=== PATIENT | male | born 1955 | race Caucasian/White ===

== ENCOUNTER → 2017-10-12 | Outpatient (CLI) | payer MEDICARE ==
[2017-10-12 17:23] LABS: URINE AMPHETAMINES SCREEN NEGATIVE; URINE BARBITURATES SCREEN NEGATIVE; URINE BENZODIAZEPINES SCREEN NEGATIVE; URINE COCAINE SCREEN NEGATIVE; URINE MARIJUANA (THC) SCREEN NEGATIVE; URINE PHENCYCLIDINE SCREEN NEGATIVE
[2017-10-12 18:30] LABS: URINE METHADONE SCREEN UNCONFIRMED POSITIVE
--- NOTE | 2017-10-12 23:03 | EKG REPORT ---
SEVERITY:- BORDERLINE ECG - SINUS RHYTHM BORDERLINE LEFT AXIS DEVIATION BORDERLINE T WAVE ABNORMALITIES : Confirmed by: Rufino Cabello 12-Oct-2017 23:02:37
== END ==
LOC: OD 14:53
PROVIDERS: ATTEND Physician Assistant
DX: Z79.891 Long term (current) use of opiate analgesic (principal)
CPT/HCPCS: 93005; 80307; 93010; G0480; 80358

== ENCOUNTER → 2018-05-09 | Outpatient (CLI) | payer MEDICARE | LOC: OD 15:12 | PROVIDERS: ATTEND Physician Assistant | DX: Z79.891 Long term (current) use of opiate analgesic (principal); Z53.8 Procedure and treatment not carried out for other reasons ==

== ENCOUNTER → 2018-07-18 | Outpatient (CLI) | payer MEDICARE ==
[2018-07-18 11:17] LABS: ABSOLUTE EOSINOPHILS # (AUTO) 0.1 10^3/uL (0.0-0.6); ABSOLUTE LYMPHOCYTES (AUTO) 1.2 10^3/uL (0.5-4.7); ABSOLUTE MONOCYTES (AUTO) 0.2 10^3/uL (0.1-1.4); ABSOLUTE NEUT (AUTO) 4.2 10^3/uL (1.7-8.2); BASOPHILS % (AUTO) 0.4 % (0-2); EOSINOPHILS % (AUTO) 1.7 % (0-6); HEMATOCRIT 46.7 % (37.9-51.0); HEMOGLOBIN 15.8 g/dL (13.5-17.0); LYMPHOCYTES % (AUTO) 20.7 % (13-45); MEAN CORPUSCULAR HEMOGLOBIN 32.4 pg (27.0-33.4); MEAN CORPUSCULAR HGB CONC 33.8 g/dL (32.0-36.0); MEAN CORPUSCULAR VOLUME 96 fl (80-97); MONOCYTES % (AUTO) 4.2 % (3-13); PLATELET COUNT 153 10^3/uL (150-450); RED BLOOD COUNT 4.87 10^6/uL (4.35-5.55); RED CELL DISTRIBUTION WIDTH 14.3 % (11.5-14.0); TOTAL CELLS COUNTED % (AUTO) 100 %; WHITE BLOOD COUNT 5.7 10^3/uL (4.0-10.5)
[2018-07-18 11:45] LABS: ANION GAP 9 (5-19); BLOOD UREA NITROGEN 12 mg/dL (7-20); CALCIUM 9.4 mg/dL (8.4-10.2); CARBON DIOXIDE 30 mmol/L (22-30); CHLORIDE 100 mmol/L (98-107); GLUCOSE 89 mg/dL (75-110); POTASSIUM 4.2 mmol/L (3.6-5.0); SODIUM 138.8 mmol/L (137-145)
[2018-07-18 11:47] LABS: C-REACTIVE PROTEIN < 5.0 mg/L (<10.0)
[2018-07-18 12:05] LABS: ERYTHROCYTE SEDIMENTATION RATE 12 mm/hr (0-20)
== END ==
LOC: OD 10:23
PROVIDERS: ATTEND Orthopaedic Surgery
DX: M25.561 Pain in right knee (principal); M25.562 Pain in left knee
CPT/HCPCS: 36415; 80048; 85025; 85652; 86140

== ENCOUNTER → 2018-07-25 | Outpatient (CLI) | payer MEDICARE ==
--- NOTE | 2018-07-25 14:48 | RADIOLOGY REPORT (SQ) ---
EXAM DESCRIPTION: NM 3 PHASE BONE SCAN COMPLETED DATE/TIME: 07/25/2018 1:23 pm REASON FOR STUDY: PAIN IN RIGHT KNEE (M25.561), PAIN IN LEFT KNEE (M25.562) M25.561 PAIN IN RIGHT K NEE M25.562 PAIN IN LEFT KNEE COMPARISON: Outside plain films 07/18/2018. RADIONUCLIDE AND DOSE: 18.7 millicuries Tc99m HDP. The route of agent administration: Intravenous. ADDITIONAL DRUGS AND DOSES: None. TECHNIQUE: Following injection of the radiopharmaceutical, serial blood flow images acquired. Equil ibrium blood pool images then acquired. Routine delayed images at 3 hour acquired of the areas of cl inical concern with additional focused images as needed. AREA OF INTEREST: Knees. LIMITATIONS: None. FINDINGS: VASCULAR FLOW IMAGES: No asymmetry or focal areas of hyperemia. BLOOD POOL IMAGES: No asymmetry or focal areas of soft-tissue hyper-perfusion. BONES: Increased uptake left knee and adjacent to right knee prosthesis. Increased uptake L5 vertebr al body. KIDNEYS: Symmetric excretion without obstruction. OTHER: No other significant finding. IMPRESSION: 1. Degenerative change left knee. No evidence of loosening or infection right knee arthroplasty. 2. Increased uptake L5 vertebral body could be degenerative or compression fracture. COMMENT: Quality measure 147: Current bone scan is compared with any available plain radiographs, p rior bone scans, and CT/MRI. TECHNICAL DOCUMENTATION: JOB ID: [id number] [employer]- All Rights Reserved Reading location - IP/workstation name: [facility]
== END ==
LOC: RAD 09:19
PROVIDERS: ATTEND Orthopaedic Surgery
DX: M25.561 Pain in right knee (principal); M25.562 Pain in left knee; M17.12 Unilateral primary osteoarthritis, left knee
CPT/HCPCS: 78315; A9561; Q9969

== ENCOUNTER → 2018-07-27 | Outpatient (CLI) | payer MEDICARE ==
--- NOTE | 2018-07-27 13:23 | RADIOLOGY REPORT (SQ) ---
EXAM DESCRIPTION: MRI LUMBAR SPINE WITHOUT COMPLETED DATE/TIME: 07/27/2018 12:48 pm REASON FOR STUDY: RADICULOPATHY, LUMBAR REGION M54.16 RADICULOPATHY, LUMBAR REGION COMPARISON: Bone scan dated 07/25/2018. TECHNIQUE: Sagittal and Axial imaging includes T1, T2, STIR and gradient echo sequences. Coronal T2/ HASTE imaging. LIMITATIONS: None. FINDINGS: VISUALIZED UPPER ABDOMEN: Limited evaluation. Renal cysts. No acute or suspicious findi ngs suggested. SEGMENTATION: No transitional anatomy. The lowest well-developed disc space is labeled L5-S1. ALIGNMENT: Anatomic. VERTEBRAE: Central compression deformity of the superior endplate of the L5 vertebral body. Approxim ately 40% loss of height of the vertebral body. Remainder of the vertebrae are intact. BONE MARROW: Edema in the marrow of the L5 vertebral body, particularly adjacent to the superior endp late. Otherwise normal. No marrow replacement. DISC SIGNAL: Normal. No significant abnormal signal or loss of height. POSTERIOR ELEMENTS: Generally intact. No pars defect evident. HARDWARE: None in the spine. CORD AND CONUS: Normal in size and signal intensity. Conus at the appropriate level. There is clumpi ng of the distal nerve roots along the periphery of the thecal sac. SOFT TISSUES: No aortic aneurysm seen. No bulky retroperitoneal adenopathy or mass. No paraspinal mas s or fluid. L1-L2: No significant spinal stenosis or exit foraminal stenosis. L2-L3: No significant spinal stenosis or exit foraminal stenosis. L3-L4: No significant disc bulge. Moderate facet arthropathy. Left side laminectomy defect. No sig nificant spinal stenosis or exit foraminal stenosis. L4-L5: Mild diffuse posterior annular disc bulge. Severe facet arthropathy, right greater than left. Left side laminectomy defect. Mild spinal stenosis and exit foraminal stenosis. L5-S1: Mild diffuse posterior disc bulge. Severe facet arthropathy, right greater than left. Left s agustin laminectomy defect. No significant spinal stenosis. Mild exit foraminal stenosis. LOWER THORACIC: Incompletely imaged. No stenosis seen. SACRUM: Visualized upper sacrum intact. OTHER: No other significant findings. IMPRESSION: 1. CENTRAL COMPRESSION DEFORMITY OF THE SUPERIOR ENDPLATE OF THE L5 VERTEBRAL BODY WITH APPROXIMATELY 40% LOSS OF HEIGHT. ADJACENT MARROW EDEMA. FINDINGS CONSISTENT WITH RECENT COMPRESSION AND CORRESP OND WITH THE ACTIVITY ON RECENT BONE SCAN. 2. SURGICAL CHANGES AND DEGENERATIVE CHANGES DETAILED ABOVE. 3. PERIPHERAL CLUMPING OF THE DISTAL NERVE ROOTS ALONG THE PERIPHERY OF THE THECAL SAC, CONSISTENT WI TH ARACHNOIDITIS. TECHNICAL DOCUMENTATION: JOB ID: [id number] [employer]- All Rights Reserved Reading location - IP/workstation name: [email or web address]
== END ==
LOC: RAD 11:49
PROVIDERS: ATTEND Orthopaedic Surgery
DX: M54.16 Radiculopathy, lumbar region (principal)
CPT/HCPCS: 72148

== ENCOUNTER → 2018-07-28 | Outpatient (CLI) | payer MEDICARE ==
[2018-07-28 12:55] LABS: ABSOLUTE LYMPHOCYTES (AUTO) 1.1 10^3/uL (0.5-4.7); ABSOLUTE MONOCYTES (AUTO) 0.4 10^3/uL (0.1-1.4); ABSOLUTE NEUT (AUTO) 9.3 10^3/uL (1.7-8.2); BASOPHILS % (AUTO) 0.1 % (0-2); HEMATOCRIT 44.8 % (37.9-51.0); HEMOGLOBIN 15.5 g/dL (13.5-17.0); LYMPHOCYTES % (AUTO) 9.8 % (13-45); MEAN CORPUSCULAR HEMOGLOBIN 32.8 pg (27.0-33.4); MEAN CORPUSCULAR HGB CONC 34.7 g/dL (32.0-36.0); MEAN CORPUSCULAR VOLUME 95 fl (80-97); MONOCYTES % (AUTO) 3.7 % (3-13); PLATELET COUNT 182 10^3/uL (150-450); RED BLOOD COUNT 4.73 10^6/uL (4.35-5.55); RED CELL DISTRIBUTION WIDTH 14.3 % (11.5-14.0); SEGMENTED NEUTROPHILS % (AUTO) 86.4 % (42-78); TOTAL CELLS COUNTED % (AUTO) 100 %; WHITE BLOOD COUNT 10.8 10^3/uL (4.0-10.5)
[2018-07-28 13:03] LABS: INTERNATIONAL RATION (INR) 0.95; PROTHROMBIN TIME 13.2 SEC (11.4-15.4)
[2018-07-28 13:04] LABS: PARTIAL THROMBOPLASTIN TIME 31.1 SEC (23.5-35.8)
[2018-07-28 13:04] LABS: APPEARANCE,URINE CLEAR; BILIRUBIN,URINE NEGATIVE (NEGATIVE); COLOR,URINE YELLOW; GLUCOSE, URINE NEGATIVE (NEGATIVE); KETONES,URINE NEGATIVE (NEGATIVE); LEUKOCYTE ESTERASE,URINE NEGATIVE (NEGATIVE); NITRITE,URINE NEGATIVE (NEGATIVE); PROTEIN,URINE NEGATIVE (NEGATIVE); URINE SPECIFIC GRAVITY 1.009; UROBILINOGEN,URINE NEGATIVE mg/dL (<2.0)
== END ==
LOC: OD 11:22
PROVIDERS: ATTEND Physician Assistant
DX: Z01.812 Encounter for preprocedural laboratory examination (principal); M54.5 Low back pain; D68.9 Coagulation defect, unspecified
CPT/HCPCS: 36415; 81001; 85025; 85610; 85730

== ENCOUNTER → 2018-08-03 | Outpatient (CLI) | payer MEDICARE ==
--- NOTE | 2018-08-03 16:32 | RADIOLOGY REPORT (SQ) ---
EXAM DESCRIPTION: CHEST PA/LATERAL COMPLETED DATE/TIME: 08/03/2018 4:21 pm REASON FOR STUDY: CHRONIC PAIN SYNDROME COMPARISON: AP chest 08/30/2012 EXAM PARAMETERS: NUMBER OF VIEWS: two views TECHNIQUE: Digital Frontal and Lateral radiographic views of the chest acquired. RADIATION DOSE: NA LIMITATIONS: none FINDINGS: LUNGS AND PLEURA: No opacities, masses or pneumothorax. No pleural effusion. MEDIASTINUM AND HILAR STRUCTURES: No masses or contour abnormalities. Surgical clips at the GE junct ion HEART AND VASCULAR STRUCTURES: Heart normal size. No evidence for failure. BONES: No acute findings. HARDWARE: None in the chest. OTHER: No other significant finding. IMPRESSION: NO SIGNIFICANT RADIOGRAPHIC FINDING IN THE CHEST. TECHNICAL DOCUMENTATION: JOB ID: [id number] [employer]- All Rights Reserved Reading location - IP/workstation name: [facility]
[2018-08-03 16:53] LABS: ABSOLUTE EOSINOPHILS # (AUTO) 0.1 10^3/uL (0.0-0.6); ABSOLUTE LYMPHOCYTES (AUTO) 1.5 10^3/uL (0.5-4.7); ABSOLUTE MONOCYTES (AUTO) 0.2 10^3/uL (0.1-1.4); ABSOLUTE NEUT (AUTO) 3.8 10^3/uL (1.7-8.2); BASOPHILS % (AUTO) 0.7 % (0-2); EOSINOPHILS % (AUTO) 2.5 % (0-6); HEMATOCRIT 45.6 % (37.9-51.0); HEMOGLOBIN 15.7 g/dL (13.5-17.0); LYMPHOCYTES % (AUTO) 26.8 % (13-45); MEAN CORPUSCULAR HEMOGLOBIN 32.3 pg (27.0-33.4); MEAN CORPUSCULAR HGB CONC 34.3 g/dL (32.0-36.0); MEAN CORPUSCULAR VOLUME 94 fl (80-97); MONOCYTES % (AUTO) 4.3 % (3-13); PLATELET COUNT 177 10^3/uL (150-450); RED BLOOD COUNT 4.85 10^6/uL (4.35-5.55); SEGMENTED NEUTROPHILS % (AUTO) 65.7 % (42-78); TOTAL CELLS COUNTED % (AUTO) 100 %; WHITE BLOOD COUNT 5.7 10^3/uL (4.0-10.5)
[2018-08-03 16:55] LABS: INTERNATIONAL RATION (INR) 0.93; PROTHROMBIN TIME 12.9 SEC (11.4-15.4)
[2018-08-03 16:56] LABS: PARTIAL THROMBOPLASTIN TIME 32.6 SEC (23.5-35.8)
[2018-08-03 17:01] LABS: APPEARANCE,URINE CLEAR; BILIRUBIN,URINE NEGATIVE (NEGATIVE); COLOR,URINE YELLOW; GLUCOSE, URINE NEGATIVE (NEGATIVE); KETONES,URINE NEGATIVE (NEGATIVE); LEUKOCYTE ESTERASE,URINE NEGATIVE (NEGATIVE); NITRITE,URINE NEGATIVE (NEGATIVE); PROTEIN,URINE NEGATIVE (NEGATIVE); URINE SPECIFIC GRAVITY 1.016
== END ==
LOC: OD 15:40
PROVIDERS: ATTEND Pain Medicine Interventional Pain Medicine
DX: D68.9 Coagulation defect, unspecified (principal); G89.4 Chronic pain syndrome; M25.561 Pain in right knee
CPT/HCPCS: 36415; 71046; 81001; 85025; 85610; 85730

== ENCOUNTER 2018-08-04 05:30 | Day surgery (SDC) | payer MEDICARE ==
[2018-08-04] MEDS ORDERED: CEFAZOLIN 1 GM/D5W RTU 1 GM/50 ML RTUPB IV ONE (06:31)
[2018-08-04] MEDS ORDERED: FENTANYL CITRATE INJ/PF 100 MCG/2 ML AMPUL ONE (06:46)
[2018-08-04] MEDS ORDERED: PROPOFOL INJ 200 MG/20 ML VIAL IV ONE (06:47)
[2018-08-04] MEDS ORDERED: LIDOCAINE 2% INJ-PF (20 MG/ML) 10 ML AMPUL ONE (06:47)
[2018-08-04] MEDS ORDERED: MIDAZOLAM 2 MG/2 ML INJ ONE (06:47)
[2018-08-04] MEDS ORDERED: ACETAMINOPHEN 1,000 MG/100 ML RTUPB IV ONE (06:47)
[2018-08-04] MEDS ORDERED: KETOROLAC TROMETHAMINE 60 MG/2 ML SDV ONE (07:10)
[2018-08-04] MEDS ORDERED: LIDOCAINE 1% INJ-PF (10 MG/ML) 30 ML SDV ONE (07:21)
[2018-08-04] MEDS ORDERED: SODIUM BICARBONATE 8.4% INJ 50 MEQ/50 ML DISP.SYRIN ONE (07:21)
[2018-08-04] MEDS ORDERED: DIPHENHYDRAMINE HCL 50 MG/ML VIAL IV PRN (08:09)
[2018-08-04] MEDS ORDERED: PROMETHAZINE HCL INJ 25 MG/1 ML VIAL IV PRN (08:09)
[2018-08-04] MEDS ORDERED: OXYCODONE-ACETAMINOPHEN 5-325 MG TABLET PO PRN ×3 (08:09→09:57)
[2018-08-04] MEDS ORDERED: MEPERIDINE HCL/PF INJ 25 MG/1 ML DISP.SYRIN IV PRN (08:09)
[2018-08-04] MEDS ORDERED: FENTANYL CITRATE INJ/PF 100 MCG/2 ML AMPUL IV PRN ×3 (08:09)
[2018-08-04] MEDS ORDERED: MORPHINE SULFATE 10 MG/ML INJ IV PRN (08:09)
[2018-08-04] MEDS ORDERED: CEFAZOLIN INJ 1 GM VIAL ONE (08:48)
--- NOTE | 2018-08-04 09:12 | OPERATIVE REPORT E ---
Operative Report NAME: LIBRA MABRY : 1955 AGE: 63Y DATE OF SURGERY: 08/04/2018 ROOM: PREOPERATIVE DIAGNOSIS: L5 lumbar compression fracture with intractable pain. POSTOPERATIVE DIAGNOSIS: L5 lumbar compression fracture with intractable pain. OPERATIVE PROCEDURE: L5 balloon kyphoplasty under fluoroscopic guidance with bilateral peripedicular approach. SURGEON: ROBYN HOFFMAN M.D. ANESTHESIA: MAC. BLOOD LOSS: 5 mL. INDICATIONS: Intractable pain. COMPLICATIONS: None. SPECIMENS REMOVED: None. PROCEDURE: After obtaining informed consent advising the patient of the risks and benefits, including serious neurological, including bleeding, infection, allergic reaction, paralysis, nerve injury, failure to treat pain, aggravation of pain, and , he was taken to the operating room and placed comfortably in the prone position. Comfort was assessed visually and verbally. He was prepped over the lumbosacral gluteal region with chlorhexidine with appropriate drying time, then draped. Using fluoroscopy the spine was evaluated. Biplanar technique was utilized. The L5 fracture was readily identified. Beginning with the right peripedicular approach a suitable skin entrance site was selected. The skin was anesthetized with 1% lidocaine with bicarb, as was the subcutaneous and periosteal tissues. When suitable local anesthesia was established a small incision was made in the skin to allow passage of the trocar. The trocar was then advanced into the peripedicular position into the vertebral body with multiple views taken to ensure passage into the vertebral body prior to passing the medial cortical line of the pedicle. The drill was then placed followed by removal and placement of the balloon. It should be noted that the balloon popped, probably due to a bone shard, and it was removed. A second balloon was placed and inflated. Attention was directed towards the left pedicle. The procedure was repeated on the left in the same similar fashion. The balloon was removed from the right and placed into the left and inflated without difficulty. Filling of the left side was then initiated. A total of 4 mL of cement was placed into the left region without difficulty or extravasation. The filling then proceeded through the right side with a total of 2.2 mL of cement. This cement was allowed to harden prior to removing the trocar. The trocars were then removed and then the region was cleansed. Sterile dressings were placed. He was taken to the PACU for postoperative care and monitoring. DICTATING PHYSICIAN: ROBYN HOFFMAN M.D. [id number] PHY#: [id number] ID: [id number] JOB#: [id number] ACCT: [id number] cc:ROBYN HOFFMAN M.D. >
[2018-08-04] MEDS ORDERED: OXYCODONE-ACETAMINOPHEN 5-325 MG TABLET ONE (09:42)
--- NOTE | 2018-08-04 10:58 | RADIOLOGY REPORT (SQ) ---
EXAM DESCRIPTION: NO CHG FLUORO COMPLETE DATE/TIME: 08/04/2018 10:39 am REASON FOR STUDY: KYPHOPLASTY ASST WITH FLUORO IN OR FINDINGS: Please see combined report for performance of procedure and radiologic supervision and int erpretation. IMPRESSION: Please see combined report for performance of procedure and radiologic supervision and i nterpretation. Reading location - IP/workstation name: [email or web address]
--- NOTE | 2018-08-04 10:58 | RADIOLOGY REPORT (SQ) ---
EXAM DESCRIPTION: L SPINE 2 VIEWS COMPLETED DATE/TIME: 08/04/2018 10:39 am REASON FOR STUDY: KYPHOPLASTY ASST WITH FLUORO IN OR COMPARISON: None. FLUOROSCOPY TIME: 4.4 minutes Spot images saved to PACS. TECHNIQUE: Intra-operative images acquired during surgical procedure to evaluate progress. NUMBER OF IMAGES: 30 LIMITATIONS: None. FINDINGS: Fluoroscopy was provided for intraoperative procedure. Please refer to the operative repo rt for further discussion. IMPRESSION: IMAGE(S) OBTAINED DURING PROCEDURE. COMMENT: Quality ID [id number]: Final reports for procedures using fluoroscopy that document radiation exp osure indices, or exposure time and number of fluorographic images (if radiation exposure indices are not available) Please consult full operative report of the attending physician for description of the procedure. TECHNICAL DOCUMENTATION: JOB ID: [id number] [employer]- All Rights Reserved Reading location - IP/workstation name: [email or web address]
[2018-08-04 11:39] VITALS: BP 134/73
== END 2018-08-04 10:40 | disposition home or self-care (01) ==
LOC: OROUT 05:30
PROVIDERS: ATTEND Pain Medicine Interventional Pain Medicine
DX: S32.020A Wedge compression fracture of second lumbar vertebra, initial encounter for closed fracture (principal); X58.XXXA Exposure to other specified factors, initial encounter; M54.5 Low back pain; E78.5 Hyperlipidemia, unspecified; M10.9 Gout, unspecified; I10 Essential (primary) hypertension; M19.90 Unspecified osteoarthritis, unspecified site; Z79.899 Other long term (current) drug therapy; Z01.812 Encounter for preprocedural laboratory examination; Z79.891 Long term (current) use of opiate analgesic; Z87.11 Personal history of peptic ulcer disease
CPT/HCPCS: 72100; 22514; C1713; Q9966; J2250; J0690 ×2; J1885; J3010; J3490 ×3; A9270; J2704; J0131; 1936

== ENCOUNTER 2018-11-10 14:07 | Emergency (ER) | payer OTHER, MEDICARE ==
[2018-11-10] MEDS ORDERED: HYDROMORPHONE HCL INJ/PF 2 MG/ML AMPULE IV ONE ×3 (15:02→20:01)
[2018-11-10] MEDS ORDERED: ONDANSETRON HCL INJ/PF 4 MG/2 ML SDV IV ONE (15:02)
--- NOTE | 2018-11-10 15:04 | ER Document Report ---
ED Medical Screen (RME) - General Chief Complaint: Back Pain Stated Complaint: BACK PAIN, LEG AND FOOT NUMBNESS Time Seen by Provider: 11/10/18 14:54 Primary Care Provider: SHAHEEN MARIA [Primary Care Provider] - Follow up as needed Mode of Arrival: Ambulatory Information source: Patient TRAVEL OUTSIDE OF THE [place] IN LAST 30 DAYS: No - HPI Patient complains to provider of: BACK PAIN Notes: 11/10/18 15:03 Patient is here with complaints of low back pain. The patient has a history of chronic back pain is on methadone and oxycodone. He has a pain contract. States for the last few days he has had some significantly increased pain in the low back with numbness down the right leg. Having difficulty ambulating due to this. No bowel or bladder dysfunction. No recent fall or injury. He had a prior laminectomy, he had a kyphoplasty done in July. He denies fevers. No abdominal pain. Exam Patient appears very uncomfortable. Difficulty ambulating due to his right leg. Tenderness to palpation to the lumbar spine in the right lumbar paraspinal muscle area. Weakness to the right lower extremity. Inability to dorsiflex the right great toe. Decreased sensation of the right leg. No saddle anesthesia. Plan CBC, CMP, sed rate, CRP. MRI of the lumbar spine. Dilaudid and Zofran. An initial examination was made on the patient as part of the triage process, and it was determined a more comprehensive evaluation was necessary. Initial labs were ordered and patient was transferred to another provider in the ED who assumed care and finished evaluation and plan. - Related Data Allergies/Adverse Reactions: No Known Allergies Allergy (Verified 08/04/18 06:21) Past Medical History - Social History Chew tobacco use (# tins/day): No Frequency of alcohol use: None Drug Abuse: None - Past Medical History Cardiac Medical History: Reports: Hx Hypertension - NO MEDS Denies: Hx Coronary Artery Disease, Hx Heart Attack Pulmonary Medical History: Denies: Hx Asthma, Hx Bronchitis, Hx COPD, Hx Pneumonia Neurological Medical History: Denies: Hx Cerebrovascular Accident, Hx Seizures Renal/ Medical History: Denies: Hx Peritoneal Dialysis GI Medical History: Reports: Hx Ulcer Musculoskeltal Medical History: Reports Hx Arthritis Past Surgical History: Reports: Hx Abdominal Surgery - ulcers, Hx Appendectomy, Hx Orthopedic Surgery - LUMBAR LAMINECTOMY, KNEE SURGERY. BILAT CARPAL TUNNEL AND CUBITAL TUNNEL SURGERY., Hx Tonsillectomy Physical Exam - Vital signs Vitals: Temp Pulse Resp BP Pulse Ox 97.6 F 76 16 117/67 98 11/10/18 14:15 11/10/18 14:15 11/10/18 14:15 11/10/18 14:15 11/10/18 14:15 Course - Vital Signs Vital signs: Temp Pulse Resp BP Pulse Ox 97.6 F 76 16 117/67 98 11/10/18 14:15 11/10/18 14:15 11/10/18 14:15 11/10/18 14:15 11/10/18 14:15 Doctor's Discharge - Discharge Referrals: SHAHEEN MARIA [Primary Care Provider] - Follow up as needed
[2018-11-10] MEDS ORDERED: DIAZEPAM 5 MG TABLET PO ONE (17:38)
[2018-11-10 18:20] LABS: ABSOLUTE BASOPHILS # (AUTO) 0.1 10^3/uL (0.0-0.2); ABSOLUTE EOSINOPHILS # (AUTO) 0.1 10^3/uL (0.0-0.6); ABSOLUTE LYMPHOCYTES (AUTO) 1.9 10^3/uL (0.5-4.7); ABSOLUTE MONOCYTES (AUTO) 0.3 10^3/uL (0.1-1.4); ABSOLUTE NEUT (AUTO) 4.6 10^3/uL (1.7-8.2); BASOPHILS % (AUTO) 0.8 % (0-2); HEMATOCRIT 47.9 % (37.9-51.0); HEMOGLOBIN 16.1 g/dL (13.5-17.0); LYMPHOCYTES % (AUTO) 27.2 % (13-45); MEAN CORPUSCULAR HEMOGLOBIN 31.6 pg (27.0-33.4); MEAN CORPUSCULAR HGB CONC 33.7 g/dL (32.0-36.0); MEAN CORPUSCULAR VOLUME 94 fl (80-97); PLATELET COUNT 166 10^3/uL (150-450); RED BLOOD COUNT 5.11 10^6/uL (4.35-5.55); RED CELL DISTRIBUTION WIDTH 14.3 % (11.5-14.0); TOTAL CELLS COUNTED % (AUTO) 100 %
[2018-11-10 18:56] LABS: ERYTHROCYTE SEDIMENTATION RATE 15 mm/hr (0-20)
--- NOTE | 2018-11-10 19:32 | ER Document Report ---
ED General - General Chief Complaint: Back Pain Stated Complaint: BACK PAIN, LEG AND FOOT NUMBNESS Time Seen by Provider: 11/10/18 14:54 Primary Care Provider: SHAHEEN MARIA [Primary Care Provider] - Follow up as needed Mode of Arrival: Ambulatory Information source: Patient TRAVEL OUTSIDE OF THE [place] IN LAST 30 DAYS: No - HPI Patient complains to provider of: Right low back pain, right lower extremity paresthesias and weakness Onset: Other - 2 days ago Onset/Duration: Sudden Quality of pain: Sharp Severity: Severe Pain Level: 5 Associated symptoms: Weakness - Right lower extremity. denies: Hurts to breath, Leg swelling, Shortness of breath Exacerbated by: Movement, Walking Relieved by: Denies Similar symptoms previously: No Recently seen / treated by doctor: Yes Notes: Patient is a 63-year-old male coming in today at the request of the [facility] for right lower back pain which is worse than his baseline as well as paresthesias and weakness in the right leg. Weakness with plantar and dorsiflexion of the right foot. He denies bladder and bowel dysfunction. Denies saddle anesthesia. - Related Data Allergies/Adverse Reactions: No Known Allergies Allergy (Verified 08/04/18 06:21) Past Medical History - General Information source: Patient - Social History Smoking Status: Current Every Day Smoker Chew tobacco use (# tins/day): No Frequency of alcohol use: None Drug Abuse: None Family History: Reviewed & Not Pertinent Patient has suicidal ideation: No Patient has homicidal ideation: No - Past Medical History Cardiac Medical History: Reports: Hx Hypertension - NO MEDS Denies: Hx Coronary Artery Disease, Hx Heart Attack Pulmonary Medical History: Denies: Hx Asthma, Hx Bronchitis, Hx COPD, Hx Pneumonia Neurological Medical History: Denies: Hx Cerebrovascular Accident, Hx Seizures Renal/ Medical History: Denies: Hx Peritoneal Dialysis GI Medical History: Reports: Hx Ulcer Musculoskeletal Medical History: Reports Hx Arthritis Past Surgical History: Reports: Hx Abdominal Surgery - ulcers, Hx Appendectomy, Hx Orthopedic Surgery - LUMBAR LAMINECTOMY, KNEE SURGERY. BILAT CARPAL TUNNEL AND CUBITAL TUNNEL SURGERY., Hx Tonsillectomy Review of Systems - Review of Systems Notes: Constitutional: No fevers. No chills. EENT: No eye redness. No eye pain. No ear pain. No sore throat. Cardiovascular: No chest pain. No palpitations. Respiratory: No cough. No shortness of breath. No respiratory distress. Gastrointestinal: No abdominal pain. No nausea, vomiting, or diarrhea. Genitourinary: Atraumatic. No lesions. No pain. No discharge. Musculoskeletal: Weakness right lower extremity, pain right low back Skin: No rash or lesions. Lymphatic: No swollen lymph nodes. Neurologic: No headache. No syncope. Psychiatric: No suicidal or homicidal ideation. Physical Exam - Vital signs Vitals: Temp Pulse Resp BP Pulse Ox 97.6 F 76 16 117/67 98 11/10/18 14:15 11/10/18 14:15 11/10/18 14:15 11/10/18 14:15 11/10/18 14:15 - Notes Notes: General: Well-developed, well-nourished. In no acute distress. Non-toxic appearing. Cardiac: Well-perfused. Regular rate and rhythm. No murmurs, rubs, or gallops. Pulmonary: No respiratory distress. No cyanosis. Bilateral lung fiels are clear to auscultation. Abdominal: Non-distended. Non-rigid. Bowels sounds are present in all four quadrants. No guarding or rebound. HEENT: Head is atraumatic. Conjunctivae not reddened. No tearing. PERRL. EOMI. Orbits atraumatic. No periorbital swelling or erythema. Oropharynx is without erythema, swelling, or exudates. Neck: Supple. No adenopathy. No meningismus. Dermatologic: Warm with good turgor. No rash. Atraumatic. Chest: Atraumatic. No chest wall tenderness to palpation. Musculoskeletal: Moves all extremities well. No range of motion deficits. Right- sided paralumbar tenderness to palpation. No midline tenderness or step-off. Weakness with plantar and dorsiflexion as compared to left leg. Pulses 2+ dorsalis pedis and posterior tibial bilateral lower extremities. Genitourinary: Examination deferred Neurologic: No gross neurologic deficits. Psychiatric: Normal mood. Course - Re-evaluation Re-evalutation: 11/10/18 21:42 Patient having some slight hyponatremia and some renal insufficiency. I encouraged him to drink more fluids and to eat some salty food. Prednisone is on board. Labs do not show any sign of infection. No signs of cauda equina on the MRI. I will start him on a steroid pack and have him [facility]. - Vital Signs Vital signs: Temp Pulse Resp BP Pulse Ox 97.6 F 76 16 117/67 98 11/10/18 14:15 11/10/18 14:15 11/10/18 14:15 11/10/18 14:15 11/10/18 14:15 - Laboratory Result Diagrams: 11/10/18 18:10 11/10/18 20:19 Laboratory results interpreted by me: 11/10/18 11/10/18 18:10 20:19 RDW 14.3 H Sodium 134.5 L Chloride 94 L Carbon Dioxide 31 H BUN 30 H Creatinine 1.33 H Est GFR (Non-Af Amer) 54 L Discharge - Discharge Clinical Impression: Renal insufficiency, Paresthesias Low back pain Qualifiers: Chronicity: chronic Back pain laterality: right Sciatica presence: with sciatica Sciatica laterality: sciatica of right side Qualified Code(s): M54.41 - Lumbago with sciatica, right side; G89.29 - Other chronic pain Condition: Good Disposition: HOME, SELF-CARE Instructions: Ice Packs ([facility]), Low Back Pain ([facility]) Additional Instructions: Kidney functions are elevated somewhat. Drink plenty of water and YOU can actually eat a little bit of salty food to help raise your sodium and chloride a little bit. Start the steroid pack tomorrow. If you have intractable pain over the weekend YOU may return to the emergency department. Prescriptions: Methylprednisolone [Medrol Dosepack (4 mg/Tab) 21 Tab/Dosepak] 21 tab PO DAILY #1 dspk Referrals: SHAHEEN MARIA [Primary Care Provider] - 11/13/18
--- NOTE | 2018-11-10 20:15 | RADIOLOGY REPORT (SQ) ---
EXAM DESCRIPTION: MR LUMBAR SPINE WITHOUT THEN WITH IV CONTRAST COMPLETED DATE/TME: 11/10/2018 14:59 CLINICAL HISTORY: 63 years Male LOW BACK PAIN, RIGHT LEG WEAKNESS COMPARISON: 07/27/2018. TECHNIQUE: Multiplanar and multisequence imaging obtained through the lumbar spine with and without IV contrast. FINDINGS: Normal alignment and lordosis. Note is again made of moderate compression at the level of L5 which is present on the previous examination. There have been changes of kyphoplasty when compared to the previous study. There appears to be some herniation of the disc material along the fracture consistent with an acute or subacute Schmorl's node along the superior endplate. No new area of fracture is noted. Conus appears unremarkable and ends at the level of T12-L1. No significant central canal or neural foraminal stenosis at L2-L3 or L3-L4. Facet arthropathy is present. There is some clumping of the nerve roots below the level of L2 which may reflect arachnoiditis. Mild disc bulging and facet arthropathy at L3-L4 without significant central canal stenosis. There is moderate neural foraminal narrowing. L4-5: Generalized bulging of the disc with mild narrowing of the central canal and moderate to severe neural foraminal stenosis. L5-S1: Facet arthropathy and disc bulging with facet cyst on the right posteriorly. Hemilaminectomy changes on the left. There is severe neural foraminal stenosis left greater than right. No additional evidence to suggest abnormal enhancement. IMPRESSION: Compression at L5 which was present on the previous study and has been treated with subsequent vertebroplasty. 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
[2018-11-10] MEDS ORDERED: PREDNISONE 20 MG TABLET PO ONE (20:26)
[2018-11-10 21:22] LABS: ALANINE AMINOTRANSFERASE 33 U/L (21-72); ALBUMIN 4.2 g/dL (3.5-5.0); ALKALINE PHOSPHATASE 94 U/L (38-126); ANION GAP 10 (5-19); ASPARTATE AMINO TRANSFERASE 33 U/L (17-59); BILIRUBIN,DIRECT 0.3 mg/dL (0.0-0.4); BILIRUBIN,TOTAL 0.6 mg/dL (0.2-1.3); BLOOD UREA NITROGEN 30 mg/dL (7-20); CALCIUM 9.6 mg/dL (8.4-10.2); CARBON DIOXIDE 31 mmol/L (22-30); CHLORIDE 94 mmol/L (98-107); GLUCOSE 90 mg/dL (75-110); POTASSIUM 4.7 mmol/L (3.6-5.0); SODIUM 134.5 mmol/L (137-145); TOTAL PROTEIN 7.4 g/dL (6.3-8.2)
[2018-11-10 21:23] LABS: C-REACTIVE PROTEIN < 5.0 mg/L (<10.0)
[2018-11-10 22:30] VITALS: BP 104/72
== END 2018-11-10 22:31 | disposition home or self-care (01) ==
LOC: ER 14:07
DX: N28.9 Disorder of kidney and ureter, unspecified (principal); R20.2 Paresthesia of skin; G89.29 Other chronic pain; M54.41 Lumbago with sciatica, right side; I10 Essential (primary) hypertension; F17.200 Nicotine dependence, unspecified, uncomplicated
CPT/HCPCS: 96376; 99284; 96374; 96375; 36415; 85025; 85652; 86140; 80053; 72158; A9576; J1170; J7512; J2405

== ENCOUNTER → 2019-01-30 | Outpatient (CLI) | payer OTHER, MEDICARE | LOC: OD 10:19 | PROVIDERS: ATTEND Physician Assistant | DX: Z51.81 Encounter for therapeutic drug level monitoring (principal); Z79.891 Long term (current) use of opiate analgesic | CPT/HCPCS: 36415; 80358 ==

== ENCOUNTER 2019-02-21 16:59 | Emergency (ER) | payer OTHER, MEDICARE ==
[2019-02-21] MEDS ORDERED: KETOROLAC TROMETHAMINE 60 MG/2 ML SDV IM ONE (17:46)
[2019-02-21] MEDS ORDERED: DEXAMETHASONE SOD PHOS INJ 10 MG/1 ML VIAL IM ONE (17:46)
[2019-02-21] MEDS ORDERED: LIDOCAINE 5% (700 MG) TRANSDERMAL ADH..PATCH TP ONE (17:47)
--- NOTE | 2019-02-21 17:57 | ER Document Report ---
ED Neck/Back Problem - General Chief Complaint: Back Pain Stated Complaint: FALL/BACK PAIN Time Seen by Provider: 02/21/19 17:31 Primary Care Provider: BRENDA FINLEY PA-C [PHYSICIAN SPOT CHECKER] - Follow up in 3-5 days Mode of Arrival: Wheelchair Information source: Patient Notes: 63-year-old male presented to ED for complaint of low back pain radiating down the right leg. He states he fell on . He has a long history of chronic back pain with sciatica. He has had an MRI he does have a appointment for back injections on March 22. He is going to pain management and is on methadone and oxycodone for his chronic back pain. He states he has increase in pain since . He states he has a decrease in sensation but he is able to feel anywhere I touch him. He has no saddle anesthesia. He has no loss of control of bowel bladder. He has good rectal tone. He is able to stand and transfer to the bed but he states it does hurt. He states he went to the [facility] and they sent him to the emergency room to get examined. TRAVEL OUTSIDE OF THE [place] IN LAST 30 DAYS: No - HPI Patient complains to provider of: Lower back Onset: Other - Where: Public place - Doctor's office Onset: Chronic Timing: Worse Quality of pain: Sharp, Throbbing Severity: Severe Pain Level: 5 Context: Fall/near-fall - Recent injury: Yes Associated symptoms: Like prior neck/back pain, Radiation to leg, Lower back pain Exacerbated by: Movement of trunk, Sitting position Relieved by: Nothing Similar symptoms previously: Yes Recently seen / treated by doctor: Yes - What - Related Data Allergies/Adverse Reactions: No Known Allergies Allergy (Verified 02/21/19 17:02) Past Medical History - General Information source: Patient - Social History Smoking Status: Current Every Day Smoker Cigarette use (# per day): Yes - ppd Frequency of alcohol use: None Drug Abuse: None Lives with: Family Family History: Reviewed & Not Pertinent Patient has suicidal ideation: No Patient has homicidal ideation: No - Past Medical History Cardiac Medical History: Reports: Hx Hypercholesterolemia, Hx Hypertension - NO MEDS Pulmonary Medical History: Reports: None EENT Medical History: Reports: None Neurological Medical History: Reports: None Endocrine Medical History: Reports: None Renal/ Medical History: Reports: None Malignancy Medical History: Reports Hx Skin Cancer GI Medical History: Reports: Hx Ulcer, Hx Endoscopy Musculoskeletal Medical History: Reports Hx Arthritis, Reports Hx Musculoskeletal Deformity, Reports Hx Musculoskeletal Trauma Skin Medical History: Reports None Psychiatric Medical History: Reports: None Traumatic Medical History: Reports: Hx Fractures - back, Hx Spine Fracture Infectious Medical History: Reports: None Past Surgical History: Reports: Hx Abdominal Surgery - ulcers, Hx Appendectomy, Hx Orthopedic Surgery - LUMBAR LAMINECTOMY, KNEE SURGERY. BILAT CARPAL TUNNEL AND CUBITAL TUNNEL SURGERY., Hx Tonsillectomy, Other - Is able to skin cancer - Immunizations Immunizations up to date: Yes Review of Systems - Review of Systems Constitutional: No symptoms reported EENT: No symptoms reported Cardiovascular: No symptoms reported Respiratory: No symptoms reported Gastrointestinal: No symptoms reported Genitourinary: No symptoms reported Male Genitourinary: No symptoms reported Musculoskeletal: No symptoms reported Skin: No symptoms reported Hematologic/Lymphatic: No symptoms reported Neurological/Psychological: No symptoms reported -: Yes All other systems reviewed and negative Physical Exam - Vital signs Vitals: Temp Pulse Resp BP Pulse Ox 98.0 F 71 18 131/75 H 97 02/21/19 17:05 02/21/19 17:05 02/21/19 17:05 02/21/19 17:05 02/21/19 17:05 Interpretation: Normal - General General appearance: Appears well, Alert - HEENT Head: Normocephalic, Atraumatic Eyes: Normal Pupils: PERRL - Respiratory Respiratory status: No respiratory distress Chest status: Nontender Breath sounds: Normal Chest palpation: Normal - Cardiovascular Rhythm: Regular Heart sounds: Normal auscultation Murmur: No - Abdominal Inspection: Normal Distension: No distension Bowel sounds: Normal Tenderness: Nontender Organomegaly: No organomegaly - Back Back: Normal, Tender, Vertebra tenderness Notes: No signs or symptoms of cauda equina, good rectal tone full sensation to the saddle area full sensation to both legs does have pain down the right leg right SI joint and vertebral area. - Extremities General upper extremity: Normal inspection, Nontender, Normal color, Normal ROM, Normal temperature General lower extremity: Normal inspection, Nontender, Normal color, Normal ROM, Normal temperature, Normal weight bearing. No: Janak's sign - Neurological Neuro grossly intact: Yes Cognition: Normal Orientation: AAOx4 [place]onas Coma Scale Eye Opening: Spontaneous [place] Coma Scale Verbal: Oriented [place] Coma Scale Motor: Obeys Commands [place] Coma Scale Total: 15 Speech: Normal Motor strength normal: LUE, RUE, LLE, RLE Sensory: Normal - Psychological Associated symptoms: Normal affect, Normal mood - Skin Skin Temperature: Warm Skin Moisture: Dry Skin Color: Normal Course - Re-evaluation Re-evalutation: 02/22/19 01:19 After performing a Medical Screening Examination, I estimate there is LOW risk for EXPANDING OR RUPTURED ABDOMINAL AORTIC ANEURYSM, CAUDA EQUINA SYNDROME, EPIDURAL MASS LESION, or HERNIATED DISK CAUSING SEVERE SPINAL STENOSIS, thus I consider the discharge disposition reasonable. I have reevaluated this patient multiple times and no significant life threatening changes are noted. The patient and I have discussed the diagnosis and risks, and we agree with discharging home and close follow-up. We also discussed returning to the Emergency Department immediately if new or worsening symptoms occur with the understanding that symptoms and presentations can change. We have discussed the symptoms which are most concerning (e.g., saddle anesthesia, urinary or bowel incontinence or retention, changing or worsening pain) that necessitate immediate return. - Vital Signs Vital signs: Temp Pulse Resp BP Pulse Ox 98.0 F 80 18 136/78 H 98 02/21/19 19:31 02/21/19 19:31 02/21/19 19:31 02/21/19 19:31 02/21/19 19:31 - Diagnostic Test Radiology reviewed: Image reviewed, Reports reviewed Discharge - Discharge Clinical Impression: Low back pain with right-sided sciatica Qualifiers: Chronicity: chronic Back pain laterality: bilateral Qualified Code(s): M54.41 - Lumbago with sciatica, right side Condition: Stable Disposition: HOME, SELF-CARE Additional Instructions: Chronic Back Pain Chronic back pain (pain persisting longer than three months) is a common problem. A medical evaluation can look for herniated disc, arthritis, osteoporosis, tumors, and infections. But at least half the time, there's no obvious treatable cause. Anxiety and depression tend to worsen back pain. Ibuprofen or other anti-inflammatory medicine can help. A heating pad, used for 15-20 minutes at a time, can ease pain. For this type of back pain, narcotic medicines should be avoided. Muscle relaxers are rarely helpful unless you're having spasms. Activity is important. Find an aerobic exercise program that your back can tolerate. Too much rest makes back pain worse. Specific back exercises are usually prescribed to strengthen the back and abdominal muscles. Often, a physical therapist can help. Avoid heavy lifting, working while bent over, or standing with both knees straight. Most back pain patients do better with a firm mattress. If new symptoms of a "herniated disc" (radiation of pain, numbness, or tingling down the back of the leg or weakness in the leg) occur, you should be re-examined. Chronic Pain Control Stress, inactivity, and depression make pain more severe regardless of the cause of the pain. Stress and poor physical condition can cause pain such as headaches and backache. Relaxation: Rest in a quiet place with your eyes closed for 20 minutes twice daily. Concentrate on a pleasant image, or simply "feel" your breathing. Clear your mind. Stress management: Deal with your "stressors." Either take action, or eliminate the stressor from your life. Don't let things hang over you. Accept those things you can't change. Nutrition: Eat small, balanced meals -- don't skip, don't overeat. Meals should be high-carbohydrate, low-sugar, low-fat. Exercise: Exercise helps painful conditions and eases stress. Get 30 minutes of moderate exercise, five days a week. Do an activity that does not flare your pain. Precautions: Pain which continues to disrupt daily activities, or which changes in nature, requires a medical evaluation. Pain Clinic referral is available. We do not manage chronic pain in the Emergency Department. We will try to appropriately help you through an acute flare of your chronic painful condition, but for on-going chronic pain that does not improve, you will need to see your private doctor or supervisor paint. We do not provide repeated medication management of chronic painful conditions. If you wish, we can provide the name of local pain management physicians. ICE PACKS: Apply ice packs frequently against the painful area. Many different schedules are recommended, such as "20 minutes on, 20 minutes off" or "one hour ice, two hours rest." If you need to work, you may need to go longer between ice treatments. You should plan to have the area ice packed AT LEAST one fourth of the time. The ice should be applied over the wrap, tape, or splint, or over a layer of cloth -- not directly against the skin. Some ice bags have a built-in cloth and can be put directly on the skin. WARM PACKS: After approximately two days, apply gentle heat (such as a heating pad or hot water bottle) for about 20 to 30 minutes about every two hours -- at least four times daily. Warmth and elevation will help you make a more rapid recovery, and will ease the pain considerably. Do not use HOT heat, and never apply heat for longer than 30 minutes. The continuous heat can invisibly damage skin and muscles -- even when no burn is seen on the surface. Damaged muscles can make you MORE sore. Toradol Injection You have been given an injection of ketorolac tromethamine (Toradol). This is an excellent, safe drug for pain control. It also has potent antiinflammatory action. You should have significant pain relief within about one hour. Toradol is not addicting and is non-sedating. It does not interfere with driving or work. Call or return if you develop itching, hives, shortness of breath, or rash. STEROID MEDICATION: You have been given an injection of medicine of the cortisone/steroid class. This medication is used to control inflammation or allergy. It is often continued as a pill for a short period of time, until the acute process subsides. There are usually no side effects from short-term use of cortisone-like medications. Some persons feel an increased sense of well-being and are not sleepy at bedtime. Long-term use of cortisone medications is best avoided, unless required for a severe condition. If your condition does not remit, or relapses after the course of corticosteroid medication, you should consult your physician. Your Lidoderm patch must be removed in 12 hours it has to stay off for 12 hours then can be reapplied for 12 hours. FOLLOW-UP CARE: If you have been referred to a physician for follow-up care, call the physicians office for an appointment as you were instructed or within the next two days. If you experience worsening or a significant change in your symptoms, notify the physician immediately or return to the Emergency Department at any time for re-evaluation. Prescriptions: Ibuprofen [Motrin 800 mg Tablet] 800 mg PO Q8H PRN #30 tab PRN Reason: Lidocaine [Lidoderm 5% (700 mg) Transdermal Patch] 1 patch TP DAILY #30 adh..patch Forms: Elevated Blood Pressure, Smoking Cessation Education Referrals: BRENDA FINLEY PA-C [PHYSICIAN SPOT CHECKER] - Follow up in 3-5 days
--- NOTE | 2019-02-21 18:29 | RADIOLOGY REPORT (SQ) ---
EXAM DESCRIPTION: L SPINE WHOLE COMPLETED DATE/TIME: 02/21/2019 6:10 pm REASON FOR STUDY: fall increase in pain COMPARISON: None. NUMBER OF VIEWS: Five views including obliques. TECHNIQUE: AP, lateral, oblique, and sacral radiographic images acquired of the lumbar spine. LIMITATIONS: None. FINDINGS: MINERALIZATION: Normal. SEGMENTATION: Normal. No transitional anatomy. ALIGNMENT: Normal. VERTEBRAE: Compression changes at L5 with kyphoplasty. Marginal osteophytes are present at L1-2 and L2-3 and L4-5. DISCS: The L4-5 disc space is narrowed. POSTERIOR ELEMENTS: Hypertrophic facet changes from L4-S1. HARDWARE: None in the spine. PARASPINAL SOFT TISSUES: Normal. PELVIS: Intact as visualized. No fractures or worrisome bone lesions. SI joints intact. OTHER: No other significant finding. IMPRESSION: Degenerative disc disease, spondylosis, facet arthropathy. Kyphoplasty at L5. TECHNICAL DOCUMENTATION: JOB ID: [id number] [employer]- All Rights Reserved Reading location - IP/workstation name: [email or web address]
[2019-02-21 19:32] VITALS: BP 136/78
== END 2019-02-21 19:32 | disposition home or self-care (01) ==
LOC: ER 16:59
DX: M54.41 Lumbago with sciatica, right side (principal); F17.210 Nicotine dependence, cigarettes, uncomplicated; E78.00 Pure hypercholesterolemia, unspecified; I10 Essential (primary) hypertension; Z85.828 Personal history of other malignant neoplasm of skin
CPT/HCPCS: 99283; 96372; 72110; J1885; J1100

== ENCOUNTER → 2019-04-23 | Outpatient (CLI) | payer MEDICARE ==
--- NOTE | 2019-04-23 16:12 | RADIOLOGY REPORT (SQ) ---
EXAM DESCRIPTION: MRI LT LOWER JOINT WITHOUT COMPLETED DATE/TIME: 04/23/2019 3:57 pm REASON FOR STUDY: LEFT HIP PAIN (M25.552) M25.552 PAIN IN LEFT HIP COMPARISON: None. TECHNIQUE: Lefthip images acquired and stored on PACS. Multiplanar images to include fat sensitive s equences as T1, fluid sensitive sequences as T2/STIR and gradient echo sequences. Large FOV fat and f luid sensitive sequences include pelvis and opposite hip. LIMITATIONS: None. FINDINGS: BONE CORTEX AND MARROW: No generalized marrow replacement. No occult fracture. No worriso me bone lesions. TARGETED HIP: FEMORAL HEAD: No AVN. Small osteophytes. No effusion. ACETABULUM: Joint space narrowing. Small osteophytes. LABRUM: Degenerative changes. No acute findings. TROCHANTER: No trochanteric bursal effusion. No edema/fluid at the insertions of the gluteus medius and gluteus minimus. OPPOSITE HIP: Limited evaluation. No worrisome bone lesions. No significant effusion. PELVIS, LOWER LUMBAR SPINE, SACROILIAC JOINTS: PELVIS : No acute findings. SI joints normal. L SPINE: Spondylosis. MUSCLES AND SOFT TISSUES: Adductors and piriformis normal. Abductors and greater trochanteric bursa n ormal without edema or fluid. Iliopsoas bursa without fluid. Hamstring attachments without edema or t ear. PELVIC SOFT TISSUES: No masses or adenopathy. SCIATIC NERVE: Identified, without masses or abnormal signal. OTHER: No other significant finding. IMPRESSION: Degenerative changes. No acute findings. TECHNICAL DOCUMENTATION: JOB ID: [id number] [employer]- All Rights Reserved Reading location - IP/workstation name: [email or web address]
== END ==
LOC: RAD 14:19
PROVIDERS: ATTEND Orthopaedic Surgery
DX: M25.552 Pain in left hip (principal)

== ENCOUNTER → 2019-04-28 | Outpatient (CLI) | payer MEDICARE ==
--- NOTE | 2019-04-28 22:33 | RADIOLOGY REPORT (SQ) ---
EXAM DESCRIPTION: MRI RT UPPER JOINT WITHOUT COMPLETED DATE/TIME: 04/28/2019 3:30 pm REASON FOR STUDY: (M25.519)PAIN IN RIGHT SHOULDER M25.511 PAIN IN RIGHT SHOULDER COMPARISON: None. TECHNIQUE: Right shoulder images acquired and stored on PACS. Multiplanar imaging to include fat sen sitive sequences such as T1, water sensitive sequences such as FST2/STIR, cartilage sensitive sequenc es such as FSPD/gradient-echo sequences. LIMITATIONS: None. FINDINGS: BONE MARROW AND CORTEX: No worrisome bone lesions or marrow replacement. No occult fractur es. JOINT OR BURSAL EFFUSION: Effusion communicates with the bursa. GLENO-HUMERAL ARTICULATION: Prominent subchondral cysts related overlying chondral loss in the inferi or glenoid. No significant osteophytes. No subluxation. ACROMION AND AC JOINT: AC arthropathy is mild -moderate. Subacromial space looks relatively preserve d. ROTATOR CUFF AND INTERVAL: Full thickness cuff tear involves the supraspinatus. Retraction to the le edi of the lateral margin of the acromion. Tendinosis in the infraspinatus. Tendinosis and probable partial tear in the subscapularis. Mild fatty atrophy in the teres minor. Mild loss of muscle bulk in the supraspinatus. LABRUM AND BICEPS LABRAL COMPLEX: Minimal low grade fraying along the supraspinatus. No biceps dis ruption or significant displacement. Mild biceps tendinosis. REMAINDER OF LABRUM AND IGHL : Degenerative blunting generally. PERIARTICULAR AND ADJACENT SOFT TISSUES: No mass or axillary adenopathy. OTHER: No other significant finding. IMPRESSION: 1. Cuff disease. Full-thickness partial width tear with retraction. There is also some degree of at rophy. 2. Joint effusion. 3. AC and glenohumeral DJD. TECHNICAL DOCUMENTATION: JOB ID: [id number] [employer]- All Rights Reserved Reading location - IP/workstation name: [email or web address]
== END ==
LOC: RAD 14:03
PROVIDERS: ATTEND Orthopaedic Surgery
DX: M25.511 Pain in right shoulder (principal); M75.121 Complete rotator cuff tear or rupture of right shoulder, not specified as traumatic; M25.411 Effusion, right shoulder; M19.011 Primary osteoarthritis, right shoulder

== ENCOUNTER 2019-06-05 07:59 | Day surgery (SDC) | payer MEDICARE ==
[~2019-06-05 07:59] MED LIST: CEFAZOLIN SODIUM 2 GM in DEXTROSE 5%-WATER 100 ML IV PRN; DEXAMETHASONE SOD PHOSPHATE INJ 4 MG/1 ML VIAL ONE; EPHEDRINE SULFATE INJ 50 MG/1 ML AMPULE ONE; FENTANYL CITRATE INJ/PF 100 MCG/2 ML AMPUL ONE; FENTANYL CITRATE INJ/PF 250 MCG/5 ML AMPULE ONE; MIDAZOLAM 2 MG/2 ML INJ ONE; ONDANSETRON HCL INJ/PF 4 MG/2 ML SDV ONE; PROPOFOL INJ 200 MG/20 ML VIAL IV ONE
[2019-06-05 08:36] LABS: APPEARANCE,URINE CLEAR; BILIRUBIN,URINE NEGATIVE (NEGATIVE); COLOR,URINE YELLOW; GLUCOSE, URINE NEGATIVE (NEGATIVE); KETONES,URINE NEGATIVE (NEGATIVE); LEUKOCYTE ESTERASE,URINE NEGATIVE (NEGATIVE); NITRITE,URINE NEGATIVE (NEGATIVE); PROTEIN,URINE NEGATIVE (NEGATIVE); URINE SPECIFIC GRAVITY 1.009
[2019-06-05] MEDS ORDERED: ALBUTEROL SULFATE 0.083% NEB 2.5 MG/3 ML AMPUL NEB ONE (08:45)
--- NOTE | 2019-06-05 09:09 | RADIOLOGY REPORT (SQ) ---
EXAM DESCRIPTION: CHEST SINGLE VIEW COMPLETED DATE/TIME: 06/05/2019 8:33 am REASON FOR STUDY: Pre Op COMPARISON: 08/03/2018 EXAM PARAMETERS: NUMBER OF VIEWS: One view. TECHNIQUE: Single frontal radiographic view of the chest acquired. RADIATION DOSE: NA LIMITATIONS: None. FINDINGS: LUNGS AND PLEURA: No opacities, masses or pneumothorax. No pleural effusion. MEDIASTINUM AND HILAR STRUCTURES: No masses. Contour normal. HEART AND VASCULAR STRUCTURES: Heart normal in size. Normal vasculature. BONES: No acute findings. HARDWARE: None in the chest. OTHER: No other significant finding. IMPRESSION: NO ACUTE RADIOGRAPHIC FINDING IN THE CHEST. TECHNICAL DOCUMENTATION: JOB ID: [id number] [employer]- All Rights Reserved Reading location - IP/workstation name: [email or web address]
[2019-06-05] MEDS ORDERED: BUPIVACAINE HCL 0.5 % INJ/PF 30 ML SDV ONE (09:11)
[2019-06-05] MEDS ORDERED: MIDAZOLAM 2 MG/2 ML INJ ONE (09:13)
[2019-06-05] MEDS ORDERED: EPINEPHRINE INJ/PF 1 MG/1 ML AMPULE ONE (09:13)
[2019-06-05 09:15] LABS: HEMATOCRIT 42.3 % (37.9-51.0); MEAN CORPUSCULAR HGB CONC 33.1 g/dL (32.0-36.0); MEAN CORPUSCULAR VOLUME 88 fl (80-97); PLATELET COUNT 191 10^3/uL (150-450); RED BLOOD COUNT 4.83 10^6/uL (4.35-5.55); RED CELL DISTRIBUTION WIDTH 16.3 % (11.5-14.0); WHITE BLOOD COUNT 7.1 10^3/uL (4.0-10.5)
[2019-06-05 09:37] LABS: ANION GAP 9 (5-19); BLOOD UREA NITROGEN 12 mg/dL (7-20); CALCIUM 9.6 mg/dL (8.4-10.2); CARBON DIOXIDE 28 mmol/L (22-30); CHLORIDE 101 mmol/L (98-107); GLUCOSE 79 mg/dL (75-110)
[2019-06-05] MEDS ORDERED: ONDANSETRON HCL INJ/PF 4 MG/2 ML SDV IV PRN (10:43)
[2019-06-05] MEDS ORDERED: DIPHENHYDRAMINE HCL 50 MG/ML VIAL IV PRN (10:43)
[2019-06-05] MEDS ORDERED: MORPHINE SULFATE 10 MG/ML INJ IV PRN ×2 (10:43→12:22)
[2019-06-05] MEDS ORDERED: PROMETHAZINE HCL INJ 25 MG/1 ML VIAL IV PRN ×2 (10:43)
[2019-06-05] MEDS ORDERED: MEPERIDINE HCL/PF INJ 25 MG/1 ML DISP.SYRIN IV PRN (10:43)
[2019-06-05] MEDS ORDERED: FENTANYL CITRATE INJ/PF 100 MCG/2 ML AMPUL IV PRN ×3 (10:43)
[2019-06-05] MEDS ORDERED: PHENYLEPHRINE HCL INJ/PF 10 MG/1 ML SDV ONE (11:17)
[2019-06-05] MEDS ORDERED: SUCCINYLCHOLINE CHLORIDE INJ 200 MG/10 ML VIAL ONE (11:17)
[2019-06-05] MEDS ORDERED: HYDROMORPHONE HCL INJ/PF 2 MG/ML AMPULE IV PRN (12:22)
--- NOTE | 2019-06-05 12:23 | Discharge Summary ---
Discharge Summary (SDC) - Discharge Final Diagnosis: Right shoulder rotator cuff tear Date of Surgery: 06/05/19 Discharge Date: 06/05/19 Condition: Good Treatment or Instructions: Schedule Follow Up w/ Dr. Jamar Beverly @ [facility] to be seen in 10-14 days or as scheduled Geraldine: [place]: [place]: May remove dressing on postop day #3, keep incision covered and dry. Cryocuff to shoulder May begin pendulum exercises along w/ hand, wrist and elbow range of motion 4x per day or as tolerated. May remove sling for hygiene purposes otherwise continue it at all times. Stool softener of choice when on pain medication. USE OF [id number] IBUPROFEN: Ibuprofen (Advil, Nuprin, Medipren, Motrin IB) is a medication for fever and pain control. In addition, it has anti- inflammatory effects which may be beneficial, especially in the treatment of injuries. It's best to take ibuprofen with food. Persons with ulcer disease or allergy to aspirin should notify their physician of this before taking ibuprofen. Ibuprofen can be given every four to six hours, for a total of four doses daily. Age Pain or fever dose Antiinflammatory dose 6-8 yr 200 mg (1 tab) 200 mg (1 tab) 9-11 yr 200 mg (1 tab) 200-400 mg (1-2 tab) 11-14 yr 200-400 mg (1-2 tab) 400 mg (2 tab) 15-adult 400 mg (2 tab) 600 mg (3 tab) ORAL NARCOTIC MEDICATION: You have been given a prescription for pain control. This medication is a narcotic. It's best taken with food, as nausea can result if taken on an empty stomach. Don't operate machinery or drive within six hours of taking this medic ation. Do not combine this medicine with alcohol, or with any medication which can cause sedation (such as cold tablets or sleeping pills) unless you get permission from the physician. Narcotics tend to cause constipation. If possible, drink plenty of fluids and eat a diet high in fiber and fruits. Please be aware that prescription narcotics also have the potential for abuse. People become addicted to these medications because of the general sense of wellbeing that they induce. This feeling along with a significant reduction in tension, anxiety, and aggression provides a stimulating seductive quality to these drugs. Once your pain is under control, we encourage you to discard your unused narcotics. Prescriptions: Ketorolac Tromethamine [Toradol 10 mg Tablet] 10 mg PO Q8HP PRN #12 tablet PRN Reason: Referrals: CAMILA PARKINSON JR, MD [Primary Care Provider] - Discharge Diet: As Tolerated Respiratory Treatments at Home: Deep Breathing/Coughing, Incentive Spirometer Discharge Activity: No Lifting Over 10 Pounds, No Lifting/Push/Pulling Report the Following to Your Physician Immediately: Fever over 101 Degrees, Unusual Bleeding, Redness, Swelling, Warmth, Increased Soreness
--- NOTE | 2019-06-05 12:29 | Operative Report ---
Operative Report DATE OF SURGERY: 06/05/19 PREOPERATIVE DIAGNOSIS: Right shoulder rotator cuff tear. AC joint DJD. Impin gement syndrome. Degenerative SLAP tear POSTOPERATIVE DIAGNOSIS: Same OPERATION: Right shoulder arthroscopy with rotator cuff repair, distal clavicle excision, acromioplasty with subacromial decompression, subpectoralis biceps tenodesis SURGEON: WILL OVERTON ANESTHESIA: GA COMPLICATIONS: None ESTIMATED BLOOD LOSS: Minimal PROCEDURE: Indication for above procedure: 64-year-old male with long-standing history of right shoulder discomfort. Attempted conservative measures including anti-inflammatories and injections without resolution of patient's symptoms. Risk and benefits of operative intervention were explained to the patient and decision was made to proceed with operative treatment. Procedure In Detail: Patient was seen and evaluated in the preoperative holding area. The RIGHT upper extremity was initialized and marked. Patient received 2g of Ancef IV for bacterial prophylaxis. Patient was taken back to the operative room where transferred to the operative table and placed under general anesthesia. Once they were adequately anesthetized patient placed in the beachchair position. Cervical spine was placed in neutral position all bony prominences were padded including nonoperative upper extremity and bilateral lower extremity. A surgical team debriefing was performed ensuring all instrumentation was available, the surgical procedure was discussed with possible concerns reviewed. The upper extremity was prepped with ChloraPrep draped in a sterile fashion. A timeout was done identifying correct patient, procedure and extremity everyone in attendance agree with this and verbalized no concerns. Posterior portal was established. Arthroscope introduced into the glenohumeral joint. Via triangulation anterior portal established. Diagnostic arthroscopy demonstrated significant fraying of the superior labrum along with intra- articular biceps tendon tear. Synovitis noted along the anterior aspect of the shoulder joint. Subscapularis had mild fraying superiorly but no full-thickness tear. Inspection of the supraspinatus demonstrate full-thickness U-shaped tear with retraction to the level of the acromion without significant retraction. Biceps tenotomy was then performed to allow for later tenodesis. Partial synovectomy performed with the arthroscopic shaver. Arthroscope introduced into the subacromial space. Lateral portal was established. Coracoacromial ligament was released but not excised. Subacromial decompression with bursectomy was performed with arthroscopic shaver. Acromioplasty was completed with arthroscopic bur removing the anterior acromial bone spur. There is notable degeneration of the distal clavicle and through the anterior portal 8 mm of the distal clavicle was excised preserving the superior AC joint ligament. Inspection of the rotator cuff confirmed the U-shaped rotator cuff tear the greater tuberosity was debrided to cancellus bone to promote rotator cuff healing. Passport cannula was placed through the lateral portal. Swivel lock anchor was placed across the medial row the fiber tape sutures were passed anteriorly and posteriorly respectively. A horizontal mattress suture was placed through the anterior-medial anchor providing provisional fixation. One limb of the posterior and anterior anchor respectively was placed through a swivel lock anchor and secured to the lateral row anteriorly and posteriorly x2 Completing Double Row repair. Through the anterior anchor the additional FiberWire suture was placed to the anterior rotator cuff providing additional fixation. There was optimal compression of the rotator cuff to the greater tuberosity no residual defect within the rotator cuff was appreciated. Rotator cuff moved as a unit throughout range of motion without tension. Attention then turned to subpectoralis biceps tenodesis. Longitudinal skin incision was made along the inferior third of the pectoralis major. Blunt dissection was performed identifying the inferior border of the pectoralis major. Any peripheral vasculature was carefully coagulated. I then identified the tenotomized long head of the biceps which was retrieved and brought out the wound. The tendon was then secured 2 centimeters distal to the musculotendinous junction with a #2 fiber loop and the remaining diseased portion of the biceps was excised. The Arthrex biceps tenodesis button was then secured to my biceps tendon. Under direct visualization I then cleared an area along the anterior aspect of the humerus and drilled unicortically. The button was then placed into the unicortical hole and the biceps tendon was shuttled to the anterior cortex of the humerus. I then checked stability of the button confirming maximal fixation. Utilizing the free needle one limb of the remaining FiberWire was secured to the biceps providing further fixation. The elbow was then placed through range of motion to ensure appropriate tension of the biceps with flexion and extension. The wound was then copiously irrigated with normal saline. Any peripheral vasculature was carefully coagulated with Bovie cautery. Skin was closed a running subcuticular 3-0 Monocryl suture reinforced with Dermabond and Steri-Strips. Portal incisions were closed with interrupted 3-0 and 4-0 nylon suture. Sponge counts, instrument counts, needle counts were correct. Patient was then awoken from anesthesia. Transferred from the operating room table to the operating room stretcher. There was no intraoperative complications patient tolerated procedure well stable to PACU. Postop plan: Patient will follow-up the office in 2 weeks at which point we will proceed with suture removal and wound check. We will begin physical therapy 6 weeks postoperatively as per rotator cuff repair protocol.
[2019-06-05] MEDS ORDERED: ROPIVACAINE HCL 0.5% INJ/PF (5 MG/1 ML) 30 ML SDV ONE (12:33)
[2019-06-05] MEDS ORDERED: LIDOCAINE 2% INJ (20 MG/ML) 20 ML MDV ONE (12:33)
[2019-06-05] MEDS ORDERED: LIDOCAINE 2%/EPINEPHRINE INJ 20 ML VIAL ONE (12:33)
[2019-06-05 17:28] VITALS: BP 135/88
--- NOTE | 2019-06-05 18:13 | EKG REPORT ---
SEVERITY:- OTHERWISE NORMAL ECG - SINUS RHYTHM BORDERLINE LEFT AXIS DEVIATION : Confirmed by: Rufino Cabello 05-Jun-2019 18:12:33
== END 2019-06-05 16:15 | disposition home or self-care (01) ==
LOC: OROUT 07:59
PROVIDERS: ATTEND Orthopaedic Surgery
DX: M75.121 Complete rotator cuff tear or rupture of right shoulder, not specified as traumatic (principal); S43.431A Superior glenoid labrum lesion of right shoulder, initial encounter; X58.XXXA Exposure to other specified factors, initial encounter; M19.011 Primary osteoarthritis, right shoulder; M75.41 Impingement syndrome of right shoulder; Z79.01 Long term (current) use of anticoagulants; F17.210 Nicotine dependence, cigarettes, uncomplicated; Z79.899 Other long term (current) drug therapy; I10 Essential (primary) hypertension; D64.9 Anemia, unspecified
CPT/HCPCS: 36415; 85027; 80048; 81001; 71045; 93005; 93010; 01630; 29827; 29826; 29824; 24340; J2795; J2250; J3490 ×3; J0690; J1100; J0171; J3010 ×2; J2370; J0330; J2405; J7060; J2704; A9270; 1630; C1713

== ENCOUNTER 2019-06-08 11:45 | Emergency (ER) | payer MEDICARE ==
[2019-06-08] MEDS ORDERED: MORPHINE SULFATE 10 MG/ML INJ IV ONE (12:33)
--- NOTE | 2019-06-08 12:39 | ER Document Report ---
ED Respiratory Problem - General Chief Complaint: Shortness Of Breath Stated Complaint: RIGHT ARM PAIN/SHORTNESS OF BREATH Time Seen by Provider: 06/08/19 12:12 Primary Care Provider: CAMILA PARKINSON JR, MD [NO LOCAL MD] - Follow up as needed Notes: Patient is a 64-year-old male with a history of chronic back pain who presents to the emergency department with a chief complaint of shortness of breath. Patient did have a right rotator cuff repair 3 days ago on the [address] Beverly. Patient reports initially he did have some shortness of breath after surgery but that had improved. Patient reports waking up this morning with increased shortness of breath. Patient reports he does have a history of blood clots with his last one being in his right leg in the 1980s. Patient reports he is not on blood thinners. Patient reports cough. Patient reports he does smoke 1 pack of cigarettes per day. Patient also reports having increased swelling to his right wrist and hand. Patient reports that he has been in the sling since surgery and has not removed this. Patient denies fever. Patient reports he does have swelling in his bilateral lower extremities but that this was present prior to surgery. Patient denies calf pain or leg pain. Patient reports he is a patient at [facility]. Patient reports he takes Oxycodone 15 mg 4 times a day as needed for pain and that Dr. Beverly had given him Percocet 7.5 mg to take in between as needed for breakthrough pain. TRAVEL OUTSIDE OF THE [place] IN LAST 30 DAYS: No - Related Data Allergies/Adverse Reactions: No Known Allergies Allergy (Verified 02/21/19 17:02) Past Medical History - General Information source: Patient - Social History Smoking Status: Current Every Day Smoker Chew tobacco use (# tins/day): No Frequency of alcohol use: None Drug Abuse: None Lives with: Spouse/Significant other Family History: Reviewed & Not Pertinent Patient has suicidal ideation: No Patient has homicidal ideation: No - Past Medical History Cardiac Medical History: Reports: Hx Hypercholesterolemia, Hx Hypertension - MEDS DC'D BY Denies: Hx Coronary Artery Disease, Hx Heart Attack Pulmonary Medical History: Reports: None Denies: Hx Asthma, Hx Bronchitis, Hx COPD, Hx Pneumonia EENT Medical History: Reports: None Neurological Medical History: Reports: None. Denies: Hx Cerebrovascular Acc ident, Hx Seizures Endocrine Medical History: Reports: None Renal/ Medical History: Reports: None. Denies: Hx Peritoneal Dialysis Malignancy Medical History: Reports Hx Skin Cancer GI Medical History: Reports: Hx Ulcer, Hx Endoscopy Musculoskeletal Medical History: Reports Hx Arthritis, Reports Hx Musculoskeletal Deformity, Reports Hx Musculoskeletal Trauma Skin Medical History: Reports None Psychiatric Medical History: Reports: None Traumatic Medical History: Reports: Hx Fractures - back, Hx Spine Fracture Infectious Medical History: Reports: None Past Surgical History: Reports: Hx Abdominal Surgery - ulcers, Hx Appendectomy, Hx Orthopedic Surgery - LUMBAR LAMINECTOMY, KNEE SURGERY. BILAT CARPAL TUNNEL AND CUBITAL TUNNEL SURGERY., Hx Tonsillectomy, Other - Is able to skin cancer - Immunizations Immunizations up to date: Yes Hx Diphtheria, Pertussis, Tetanus Vaccination: Yes Review of Systems - Review of Systems Constitutional: No symptoms reported EENT: No symptoms reported Cardiovascular: No symptoms reported Respiratory: See HPI Gastrointestinal: No symptoms reported Genitourinary: No symptoms reported Male Genitourinary: No symptoms reported Musculoskeletal: See HPI Skin: No symptoms reported Hematologic/Lymphatic: No symptoms reported Neurological/Psychological: No symptoms reported Physical Exam - Vital signs Vitals: Temp Pulse Resp BP Pulse Ox 97.4 F 67 20 169/81 H 95 06/08/19 11:50 06/08/19 11:50 06/08/19 11:50 06/08/19 11:50 06/08/19 11:50 Interpretation: Hypertensive - Notes Notes: GENERAL: Well-appearing, well-nourished and in no acute distress. HEAD: Atraumatic, normocephalic. EYES: Pupils equal round and reactive to light, extraocular movements intact, sclera anicteric, conjunctiva are normal. ENT: Nares patent, oropharynx clear without exudates. Moist mucous membranes. NECK: Normal range of motion, supple without lymphadenopathy or JVD. LUNGS: Breath sounds clear to auscultation bilaterally and equal. No wheezes rales or rhonchi. HEART: Regular rate and rhythm without murmurs, rubs or gallops. ABDOMEN: Soft, nontender, normoactive bowel sounds. No guarding, no rebound. No masses appreciated. BACK: No cervical, thoracic, lumbar midline tenderness. No saddle anesthesia, normal distal neurovascular exam. GENITOURINARY: Deferred. EXTREMITIES: Normal range of motion, + 1 pitting edema bilateral lower extremities. No clubbing or cyanosis. Right arm in shoulder immobilizer, dressing to right shoulder dry and intact, + edema noted to the right wrist and right hand, + 2 right radial pulse, < 2 sec cap refill to all digits on the right hand, patient able to wiggle all fingers on right hand. NEUROLOGICAL: Cranial nerves II through XII grossly intact. Normal speech, normal gait. PSYCH: Normal mood, normal affect. SKIN: Warm, Dry, normal turgor, no rashes or lesions noted. Course - Re-evaluation Re-evalutation: 06/08/19 12:41 Patient family member reports that he has been wearing the sling consistently and has not removed it since the surgery 3 days ago. I did loosen the immobilizer and elevated the patient's right upper extremity on multiple pillows keeping the shoulder immobilized. Patient reports this feels slightly better. Patient does have edema noted to the right wrist and right hand. Patient was sent over here to be evaluated for possible blood clot into his right upper extremity by the on-call physician at [facility] for surgery. Patient right hand is warm and pink. We will give the patient a dose of pain medication. Appropriate labs and Doppler have been ordered. Patient is not tachypneic, tachycardic, or hypotensive. 06/08/19 13:58 Per the doppler tech the right upper extremity ultrasound is negative for clot. 06/08/19 14:48 Labs at the bedside attempting to obtain blood work. Patient is laying supine with his head is slightly elevated. Patient reports that shortness of breath is actually improved but still having pain to the right shoulder and right wrist. Patient's right wrist x-ray did show degenerative changes and soft tissue swelling. I did walk into the patient's room and his right lower arm was not elevated. I did readjust this and explained the importance of keeping this elevated to help with the swelling. I will give the patient another dose of pain medication. Patient is at high risk for pulmonary embolism as he does have a history of clots and recent surgery. CTA of the chest ordered to rule out PE due to the patient's complaint of shortness of breath. 06/08/19 16:21 Patient is waiting for CTA. Patient reports he is having increased right wrist pain. Patient reports now that he is thinking about it he feels like this could be a flare of his gout. Patient reports he does take indomethacin as needed but has not taken this over the past few days. He reports usually if it is gout the indomethacin will help with his discomfort in about 1 hour. I did add on a uric acid. Patient right arm remains elevated. I did provide the patient an ice pack for his right shoulder. Patient is not tachycardic or hypotensive. Patient is not hypoxic. 06/08/19 16:52 While over in CAT scan patient's IV in the left arm did infiltrate. Per the nurse they have attempted multiple times to obtain a blood work and IV without success. I did discuss this with Dr. Sharp my supervising physician who recommends the patient getting a VQ scan to rule out pulmonary embolus as the patient does have significant risk factors. 06/08/19 19:14 Patient's VQ scan is negative. Patient remains in normal sinus rhythm on the monitor with a heart rate of 80, patient is not tachypneic or tachycardic. Patient's blood pressure is slightly improved to 144/92. Patient reports indomethacin did seem to take the edge off of his right wrist and right hand pain. Patient to be discharged and given strict return precautions. - Vital Signs Vital signs: Temp Pulse Resp BP Pulse Ox 98.5 F 67 10 L 144/92 H 96 06/08/19 19:00 06/08/19 11:50 06/08/19 19:01 06/08/19 19:00 06/08/19 19:01 - Laboratory Result Diagrams: 06/08/19 15:40 06/08/19 15:40 Laboratory results interpreted by me: 06/08/19 15:40 Hgb 13.0 L RDW 16.1 H Seg Neutrophils % 79.2 H - Diagnostic Test Radiology reviewed: Reports reviewed Radiology results interpreted by me: 06/08/19 18:56 Wrist X-Ray 06/08/19 12:32 IMPRESSION: Circumferential soft tissue swelling without underlying osseous injury. Background of severe degenerative changes as detailed above. Lung Scan-VQ NM 06/08/19 16:51 IMPRESSION: NORMAL VENTILATION-PERFUSION LUNG SCAN. NEGATIVE FOR PULMONARY EMBOLI. - EKG Interpretation by Me Additional EKG results interpreted by me: 06/08/19 15:05 Patient's EKG shows sinus rhythm with a heart rate of 60 7P. Patient's AZ interval 136, QT 4 4 and QTC is 427. Patient has a left axis deviation. There is no ST segment changes in consecutive leads. There is no ectopy. There is no significant change since previous EKG 3 days ago. Discharge - Discharge Clinical Impression: Shortness of breath Gout Qualifiers: Gout site: wrist Gout etiology: unspecified cause Chronicity: acute Laterality: right Qualified Code(s): M10.9 - Gout, unspecified Right shoulder pain Qualifiers: Chronicity: acute Qualified Code(s): M25.511 - Pain in right shoulder Condition: Stable Disposition: HOME, SELF-CARE Additional Instructions: *Today you are seen in the emergency department for shortness of breath and right arm swelling. We did obtain a scan of your chest which was negative for a pulmonary embolus which is a blood clot. We did perform a ultrasound on your right arm that was also negative for blood clot. Your symptoms are consistent with gout as you are having extreme pain and swelling to the right wrist and hand. We have given you a dose of indomethacin 50 mg here in the emergency department. Please take this medication as prescribed. Please continue to follow the discharge instructions as previously given after your surgery. Please continue to wear the sling and use the icing machine as directed. *Please keep your follow-up appointment with your orthopedist. Please return to the emergency department if you develop shortness of breath, chest pain, increased swelling to the right arm, any new or worsening symptoms. I am giving you a prescription for the indomethacin. You can take this 50 mg 3 times a day as needed. Please use the lowest effective dose and the shortest effective duration. Only take this as needed. Gout You have been diagnosed as having gout. Gout is a problem caused by an excess of uric acid, a natural chemical found in the body. The cause of this disease is unknown. Gout arthritis occurs when crystals of uric acid form in the joints. The big toe is the most common joint involved, but any joint can become affected. Persons with gout may also form uric acid kidney stones, resulting in flank pain and blood in the urine. Nodules of uric acid may form under the skin. The first step of treatment is to decrease the inflammation in the joint with antiinflammatory medication. Medication to lower the uric acid level in the blood may then be prescribed. This medication should be taken regularly, as any sudden change in dosage may provoke an attack of gout. Some foods, such as red meat, can provoke an attack in some gout sufferers. Call the doctor if new symptoms arise, or if you do not improve. Gout Diet Changing your diet can decrease the uric acid in your blood. High levels of uric acid cause gouty arthritis and uric acid kidney stones. If you have gout, you should avoid meats that are high in purine. Meat products to avoid include liver, kidneys, and brains. In general, poultry is better than red meats. Seafoods to avoid include anchovies, sardines, mancuso, mackerel, and scallops. In addition to limiting purine-rich foods, people with gout should limit protein intake to 10-15% of total calories. Carbohydrate intake should be around 50% of total daily calories. Limit fat intake to 30% of total daily calories. Cholesterol intake should be less than 300 mg/day. Maintain or achieve a healthy body weight. Weight loss should be gradual. Rapid weight loss can actually increase uric acid levels temporarily. Alcohol, especially beer, should be avoided. Get plenty of fluids. This dilutes urinary uric acid, and helps prevent uric acid kidney stones. Drink eight to twelve cups of water daily. Prescriptions: Indomethacin 50 mg PO TID PRN #6 capsule PRN Reason: Referrals: CAMILA PARKINSON JR, MD [NO LOCAL MD] - Follow up as needed
--- NOTE | 2019-06-08 14:01 | RADIOLOGY REPORT (SQ) ---
EXAM DESCRIPTION: WRIST RIGHT 3 VIEWS COMPLETED DATE/TIME: 06/08/2019 1:22 pm REASON FOR STUDY: Right wrist swelling/tenderness COMPARISON: None. NUMBER OF VIEWS: Three views. TECHNIQUE: AP, lateral, and oblique radiographic images acquired of the right wrist. LIMITATIONS: None. FINDINGS: MINERALIZATION: Normal. BONES: No acute fracture or dislocation. No worrisome bone lesions. Severe radiocarpal interval deg enerative changes with widening of the scapholunate interval. Severe degenerative changes are likewi se seen of the thumb carpal metacarpal joint. Moderate degenerative changes are seen of the thumb in terphalangeal joint. . SOFT TISSUES: Circumferential soft tissue swelling is demonstrated. OTHER: No other significant finding. IMPRESSION: Circumferential soft tissue swelling without underlying osseous injury. Background of s evere degenerative changes as detailed above. TECHNICAL DOCUMENTATION: JOB ID: [id number] [employer]- All Rights Reserved Reading location - IP/workstation name: [email or web address]
--- NOTE | 2019-06-08 14:02 | RADIOLOGY REPORT (SQ) ---
EXAM DESCRIPTION: CHEST 2 VIEWS COMPLETED DATE/TIME: 06/08/2019 1:22 pm REASON FOR STUDY: SOB COMPARISON: 06/05/2019 EXAM PARAMETERS: NUMBER OF VIEWS: two views TECHNIQUE: Digital Frontal and Lateral radiographic views of the chest acquired. RADIATION DOSE: NA LIMITATIONS: Suboptimal patient positioning and overlying warming device. FINDINGS: LUNGS AND PLEURA: No opacities, masses or pneumothorax. No pleural effusion. MEDIASTINUM AND HILAR STRUCTURES: No masses or contour abnormalities. HEART AND VASCULAR STRUCTURES: Heart normal size. No evidence for failure. BONES: No acute findings. HARDWARE: Surgical clips are seen at the level of the gastroesophageal junction. OTHER: No other significant finding. IMPRESSION: NO ACUTE RADIOGRAPHIC FINDING IN THE CHEST. TECHNICAL DOCUMENTATION: JOB ID: [id number] [employer]- All Rights Reserved Reading location - IP/workstation name: [email or web address]
[2019-06-08] MEDS ORDERED: HYDROMORPHONE HCL INJ/PF 2 MG/ML AMPULE IV ONE (14:59)
[2019-06-08 15:57] LABS: ABSOLUTE EOSINOPHILS # (AUTO) 0.1 10^3/uL (0.0-0.6); ABSOLUTE LYMPHOCYTES (AUTO) 1.4 10^3/uL (0.5-4.7); ABSOLUTE MONOCYTES (AUTO) 0.4 10^3/uL (0.1-1.4); ABSOLUTE NEUT (AUTO) 7.6 10^3/uL (1.7-8.2); BASOPHILS % (AUTO) 0.5 % (0-2); EOSINOPHILS % (AUTO) 1.3 % (0-6); HEMATOCRIT 40.2 % (37.9-51.0); LYMPHOCYTES % (AUTO) 14.4 % (13-45); MEAN CORPUSCULAR HEMOGLOBIN 28.9 pg (27.0-33.4); MEAN CORPUSCULAR HGB CONC 32.4 g/dL (32.0-36.0); MEAN CORPUSCULAR VOLUME 89 fl (80-97); MONOCYTES % (AUTO) 4.6 % (3-13); PLATELET COUNT 186 10^3/uL (150-450); RED BLOOD COUNT 4.52 10^6/uL (4.35-5.55); RED CELL DISTRIBUTION WIDTH 16.1 % (11.5-14.0); SEGMENTED NEUTROPHILS % (AUTO) 79.2 % (42-78); TOTAL CELLS COUNTED % (AUTO) 100 %; WHITE BLOOD COUNT 9.6 10^3/uL (4.0-10.5)
[2019-06-08 16:14] LABS: ALKALINE PHOSPHATASE 96 U/L (38-126); ANION GAP 8 (5-19); ASPARTATE AMINO TRANSFERASE 31 U/L (17-59); BILIRUBIN,DIRECT 0.1 mg/dL (0.0-0.4); BILIRUBIN,TOTAL 0.5 mg/dL (0.2-1.3); BLOOD UREA NITROGEN 12 mg/dL (7-20); CALCIUM 9.4 mg/dL (8.4-10.2); CARBON DIOXIDE 30 mmol/L (22-30); CHLORIDE 101 mmol/L (98-107); GLUCOSE 95 mg/dL (75-110); POTASSIUM 3.9 mmol/L (3.6-5.0); TOTAL PROTEIN 7.3 g/dL (6.3-8.2)
[2019-06-08] MEDS ORDERED: KETOROLAC TROMETHAMINE INJ/PF 30 MG/1 ML SDV IV ONE (16:21)
[2019-06-08] MEDS ORDERED: INDOMETHACIN 25 MG CAPSULE PO ONE (17:06)
--- NOTE | 2019-06-08 18:46 | RADIOLOGY REPORT (SQ) ---
EXAM DESCRIPTION: NM LUNG VENT/PERF SCAN COMPLETED DATE/TIME: 06/08/2019 6:37 pm REASON FOR STUDY: hx. PE, sob, recent surgery COMPARISON: None. RADIONUCLIDE AND DOSE: 5.04 millicuries TC-99m MAA Intravenous 29.4 millicuries TC-99m DTPA Inhaled aerosol TECHNIQUE: Eight views of the lungs acquired post ventilation of DTPA aerosol. Eight matching views of the lungs acquired following injection of MAA. LIMITATIONS: None. FINDINGS: VENTILATION: Symmetric and homogeneous distribution of DTPA aerosol during ventilatory pha se. No significant areas of photopenia. PERFUSION: Perfusion images with normal homogenous activity and no wedge-shaped or segmental defects. No ventilation-perfusion mismatches. OTHER: No other significant finding. IMPRESSION: NORMAL VENTILATION-PERFUSION LUNG SCAN. NEGATIVE FOR PULMONARY EMBOLI. TECHNICAL DOCUMENTATION: JOB ID: [id number] [employer]- All Rights Reserved Reading location - IP/workstation name: [email or web address]
[2019-06-08 19:06] VITALS: BP 144/92
--- NOTE | 2019-06-08 20:16 | XCELERA REPORT ---
[address] [address] Upper Extremity Venous Evaluation Name: LIBRA MABRY Age: 64 yrs Gender: Male : 1955 Patient Status: Emergency Patient Location: ER Study Date: 06/08/2019 01:38 PM Procedure: Unilateral duplex scan of the right upper extremity veins was performed, including responses to compression and other maneuvers. Reason For Study: swelling RUE, recent shoulder sx 06/05 Ordering Physician: MARE CASTRO Performed By: Lulú Waters Right Side Venous Evaluation Some limitations due to bandaging near Subclavian vein. Normal vessel filling wall to wall, compression and augmentation as well as Colour flow down to the forearm veins. Interpretation Summary No duplex evidence of DVT or obstruction in the right upper extremity. : MARE CASTRO > Moody Montalvo
--- NOTE | 2019-06-09 12:34 | EKG REPORT ---
SEVERITY:- NORMAL ECG - SINUS RHYTHM : Confirmed by: Rufino Cabello 09-Jun-2019 12:33:59
== END 2019-06-08 20:01 | disposition home or self-care (01) ==
LOC: ER 11:45
DX: R06.02 Shortness of breath (principal); M10.9 Gout, unspecified; M25.511 Pain in right shoulder; Z98.890 Other specified postprocedural states; M25.531 Pain in right wrist; R05 Cough; R60.9 Edema, unspecified; F17.210 Nicotine dependence, cigarettes, uncomplicated; I10 Essential (primary) hypertension; M54.9 Dorsalgia, unspecified; G89.29 Other chronic pain; Z79.891 Long term (current) use of opiate analgesic; Z86.718 Personal history of other venous thrombosis and embolism
CPT/HCPCS: 93005; 36415; 84550; 85025; 80053; 84484; 93971 ×2; 71046; 73110; 78582; 93010; A9540; A9567; A9270; J1885; J2270; J1170; Q9969; 96374; 96375; 99284; J3490

== ENCOUNTER 2019-07-23 14:37 | Emergency (ER) | payer OTHER, MEDICARE ==
--- NOTE | 2019-07-23 15:12 | ER Document Report ---
ED Medical Screen (RME) - General Chief Complaint: Wrist Pain Stated Complaint: RIGHT WRIST PAIN, SWELLING Time Seen by Provider: 07/23/19 15:08 Primary Care Provider: KERRIE SMILEY MD [Primary Care Provider] - Follow up as needed TRAVEL OUTSIDE OF THE [place] IN LAST 30 DAYS: No - HPI Notes: 07/23/19 15:11 Patient is a 64-year-old male who presents complaining of swollen area to his right dorsal wrist over the past several days, but states that he had a small bump there for the past couple weeks. Patient states that movement does make the pain worse. He has not noticed any purulent discharge or streaks. He has noticed some redness. No fever. I have treated and performed a rapid initial assessment of this patient. A comprehensive ED assessment and evaluation of the patient, analysis of test results and completion of medical decision making process will be conducted by additional ED providers. PHYSICAL EXAMINATION: GENERAL: Well-appearing, well-nourished and in no acute distress. A&Ox4. Answers questions appropriately. Right wrist: There is an erythemic and swollen area to the dorsal wrist with mild tenderness associated. See updated vitals. - Related Data Allergies/Adverse Reactions: No Known Allergies Allergy (Verified 02/21/19 17:02) Past Medical History - Past Medical History Cardiac Medical History: Reports: Hx Hypercholesterolemia, Hx Hypertension - MEDS DC'D BY Denies: Hx Coronary Artery Disease, Hx Heart Attack Pulmonary Medical History: Denies: Hx Asthma, Hx Bronchitis, Hx COPD, Hx Pneumonia Neurological Medical History: Denies: Hx Cerebrovascular Accident, Hx Seizures Renal/ Medical History: Denies: Hx Peritoneal Dialysis Malignancy Medical History: Reports Hx Skin Cancer GI Medical History: Reports: Hx Ulcer, Hx Endoscopy Musculoskeltal Medical History: Reports Hx Arthritis, Reports Hx Musculoskeletal Deformity, Reports Hx Musculoskeletal Trauma Traumatic Medical History: Reports: Hx Fractures - back, Hx Spine Fracture Past Surgical History: Reports: Hx Abdominal Surgery - ulcers, Hx Appendectomy, Hx Orthopedic Surgery - LUMBAR LAMINECTOMY, KNEE SURGERY. BILAT CARPAL TUNNEL AND CUBITAL TUNNEL SURGERY., Hx Tonsillectomy, Other - Is able to skin cancer - Immunizations Immunizations up to date: Yes Hx Diphtheria, Pertussis, Tetanus Vaccination: Yes Physical Exam - Vital signs Vitals: Temp Pulse Resp BP Pulse Ox 98.1 F 126 H 20 141/82 H 74 L 07/23/19 14:47 07/23/19 14:47 07/23/19 14:47 07/23/19 14:47 07/23/19 14:47 Course - Vital Signs Vital signs: Temp Pulse Resp BP Pulse Ox 98.1 F 92 20 141/82 H 98 07/23/19 14:47 07/23/19 15:10 07/23/19 14:47 07/23/19 14:47 07/23/19 15:10 Doctor's Discharge - Discharge Referrals: KERRIE SMILEY MD [Primary Care Provider] - Follow up as needed
[2019-07-23 16:50] LABS: ABSOLUTE BASOPHILS # (AUTO) 0.1 10^3/uL (0.0-0.2); ABSOLUTE EOSINOPHILS # (AUTO) 0.2 10^3/uL (0.0-0.6); ABSOLUTE LYMPHOCYTES (AUTO) 1.3 10^3/uL (0.5-4.7); ABSOLUTE MONOCYTES (AUTO) 0.4 10^3/uL (0.1-1.4); ABSOLUTE NEUT (AUTO) 5.2 10^3/uL (1.7-8.2); BASOPHILS % (AUTO) 0.8 % (0-2); EOSINOPHILS % (AUTO) 2.3 % (0-6); HEMATOCRIT 42.8 % (37.9-51.0); HEMOGLOBIN 14.2 g/dL (13.5-17.0); LYMPHOCYTES % (AUTO) 17.9 % (13-45); MEAN CORPUSCULAR HGB CONC 33.1 g/dL (32.0-36.0); MEAN CORPUSCULAR VOLUME 88 fl (80-97); PLATELET COUNT 194 10^3/uL (150-450); RED BLOOD COUNT 4.89 10^6/uL (4.35-5.55); RED CELL DISTRIBUTION WIDTH 15.7 % (11.5-14.0); TOTAL CELLS COUNTED % (AUTO) 100 %
--- NOTE | 2019-07-23 16:52 | ER Document Report ---
ED Hand/Wrist Injury - General TRAVEL OUTSIDE OF THE [place] IN LAST 30 DAYS: No <POPEYE WALKER - Last Filed: 07/23/19 19:54> <RAMIRO SANTIAGO - Last Filed: 07/24/19 06:44> - General Chief Complaint: Hand Swelling Stated Complaint: RIGHT WRIST PAIN, SWELLING Time Seen by Provider: 07/23/19 15:08 Primary Care Provider: SHARMIN SKELTON MD [ACTIVE STAFF] - Follow up tomorrow (Be at the office at 8 AM in the morning) KERRIE SMILEY MD [NO LOCAL MD] - Follow up as needed Notes: CHIEF COMPLAINT: Right wrist pain and swelling HPI: 64-year-old male with history of gouty arthritis presenting to the emergency department for evaluation of swelling and redness to the dorsal right wrist. Patient is not on blood thinners. Patient states he began noticing some swelling 2 to 3 days ago, some redness and increased discomfort today. States he can fully flex and extend the fingers of the right hand. Denies fever. Patient states that he has had gout in this wrist previously. He has on allopurinol but states that his insurance would not cover colchicine. He states he has been on Indocin as well has taken 2 doses in the last 2 days without significant resolution of his discomfort. ROS: See HPI - all other systems were reviewed and are otherwise negative Constitutional: no fever Integumentary: + rash Allergy: no hives Musculoskeletal: + extremity pain or swelling Neurological: no numbness/tingling, no weakness MEDICATIONS: I agree with the patient medications as charted by the RN. ALLERGIES: I agree with the allergies as charted by the RN. PAST MEDICAL HISTORY/PAST SURGICAL HISTORY: Reviewed and agree as charted by RN. SOCIAL HISTORY: Reviewed and agree as charted by RN. FAMILY HISTORY: No significant familial comorbid conditions directly related to patient complaint EXAM: Reviewed vital signs as charted by RN. CONSTITUTIONAL: Alert and oriented and responds appropriately to questions. Well-appearing; well-nourished, no acute distress HEAD: Normocephalic; atraumatic EYES: Conjunctivae clear, sclerae non-icteric ENT: normal nose; no rhinorrhea; moist mucous membranes NECK: Supple without meningismus CARD: symmetric distal pulses RESP: Normal chest excursion without splinting or tachypnea ABD/GI: non-distended. BACK: The back appears normal EXT: Normal ROM in all joints; no cyanosis, no effusions, there is mild erythema over the dorsal and radial side of the right wrist. No induration. No fluctuant areas. Minimal tenderness on palpation. Area does jj with pressure. Radial and ulnar pulses are present in the right wrist. Patient is able to fully flex and extend the fingers of the right hand as well as abduct the thumb. Sensation is intact in the distal fingertips to touch with capillary refill less than 3 seconds SKIN: Normal color for age and race; warm; dry; good turgor NEURO: Moves all extremities equally; Motor and sensory function intact PSYCH: The patient's mood and manner are appropriate. Grooming and personal hygiene are appropriate. MDM: 64-year-old male with prior history of gouty arthritis presenting for some redness and soft tissue swelling over the dorsal aspect of the radial side of the right wrist. No fluctuant area suggesting an abscess. He is not diabetic lower suspicion for osteomyelitis. He has not febrile. I suspect this is likely gout given his history. Lab work was ordered via the triage process. I will obtain an x-ray of the wrist. Patient [facility] care who then referred him into the emergency department. Will sit or further treatment modalities once we have evaluated x-ray and lab work (POPEYE WALKER) - Related Data Allergies/Adverse Reactions: No Known Allergies Allergy (Verified 07/23/19 15:15) Past Medical History - Social History Smoking Status: Current Every Day Smoker Family History: Reviewed & Not Pertinent Patient has suicidal ideation: No Patient has homicidal ideation: No - Past Medical History Cardiac Medical History: Reports: Hx Hypercholesterolemia, Hx Hypertension - MEDS DC'D BY Denies: Hx Coronary Artery Disease, Hx Heart Attack Pulmonary Medical History: Denies: Hx Asthma, Hx Bronchitis, Hx COPD, Hx Pneumonia Neurological Medical History: Denies: Hx Cerebrovascular Accident, Hx Seizures Renal/ Medical History: Denies: Hx Peritoneal Dialysis Malignancy Medical History: Reports Hx Skin Cancer GI Medical History: Reports: Hx Ulcer, Hx Endoscopy Musculoskeletal Medical History: Reports Hx Arthritis, Reports Hx Musc uloskeletal Deformity, Reports Hx Musculoskeletal Trauma Traumatic Medical History: Reports: Hx Fractures - back, Hx Spine Fracture Past Surgical History: Reports: Hx Abdominal Surgery - ulcers, Hx Appendectomy, Hx Orthopedic Surgery - LUMBAR LAMINECTOMY, KNEE SURGERY. BILAT CARPAL TUNNEL AND CUBITAL TUNNEL SURGERY., Hx Tonsillectomy, Other - Is able to skin cancer - Immunizations Immunizations up to date: Yes Hx Diphtheria, Pertussis, Tetanus Vaccination: Yes <POPEYE WALKER - Last Filed: 07/23/19 19:54> Physical Exam - Vital signs Vitals: Temp Pulse Resp BP Pulse Ox 98.1 F 126 H 20 141/82 H 74 L 07/23/19 14:47 07/23/19 14:47 07/23/19 14:47 07/23/19 14:47 07/23/19 14:47 Course - Laboratory Result Diagrams: 07/23/19 16:34 07/23/19 16:34 <POPEYE WALKER - Last Filed: 07/23/19 19:54> - Laboratory Result Diagrams: 07/23/19 16:34 07/23/19 16:34 - Diagnostic Test Radiology reviewed: Image reviewed, Reports reviewed <RAMIRO SANTIAGO - Last Filed: 07/24/19 06:44> - Re-evaluation Re-evalutation: 07/23/19 17:37 X-ray imaging read as advanced arthritic changes, cannot rule out osteomyelitis or septic joint. Discussed with Dr. Flaherty, Attending. discussed with radiology who recommend MRI of the wrist with and without contrast. Have added CRP and sed rate. 07/23/19 19:53 Have requested that nursing recheck vital signs. MRI result is pending still. Report given to oncoming shift Karissa Brunner (POPEYE WALKER) - Vital Signs Vital signs: Temp Pulse Resp BP Pulse Ox 98.4 F 83 18 109/60 97 07/23/19 20:09 07/23/19 20:09 07/23/19 20:09 07/23/19 20:09 07/23/19 20:09 07/23/19 20:[address] Flaherty and then with Dr. Skelton with orthopedics. Dr. Purvis also discussed the ESR's and C-reactive protein as well as a CBC with Dr. Skelton and he stated that he does not believe there is osteomyelitis or septic joint. He states give the jodee a dose of Septra tonight and have him in the morning come to his office at 8:00. I discussed this with Dr. Flaherty. Dr. Flaherty recommended given double strength Bactrim today and make sure that the patient understands that he is to follow-up first thing in the morning. Patient was treated with Bactrim and discharged home with prescription for Bactrim and instructions to follow-up with Dr. Skelton first thing in the morning at 8:00. (RAMIRO SANTIAGO) - Laboratory Laboratory results interpreted by me: 07/23/19 07/23/19 07/23/19 16:34 16:34 16:34 RDW 15.7 H ESR 30 H Chloride 95 L Carbon Dioxide 33 H Glucose 127 H Alkaline Phosphatase 146 H C-React Prot High Sens 07/23/19 16:34 RDW ESR Chloride Carbon Dioxide Glucose Alkaline Phosphatase C-React Prot High Sens 9.4400 H Discharge <POPEYE WALKER - Last Filed: 07/23/19 19:54> <RAMIRO SANTIAGO - Last Filed: 07/24/19 06:44> - Discharge Clinical Impression: Osteomyelitis of right wrist Condition: Stable Disposition: HOME, SELF-CARE Additional Instructions: Osteomyelitis You have been diagnosed as having osteomyelitis -- an infection in the bone. This type of infection is much more serious than simple skin infections and must be treated aggressively. Osteomyelitis usually results from cuts or puncture wounds which allow germs to get into the bone. It can also occur spontaneously from germs in the blood stream. The usual treatment is intravenous antibiotics. With newer antibiotics, this can often be done outside the hospital. Surgery to clean out the infected bone is often necessary. You MUST keep all appointments and get your antibiotics as instructed -- osteomyelitis is a serious problem. You should go to the emergency room or contact your physician if you have a dramatic increase in pain, redness, or swelling, or if you develop shaking chills, fever, or rash. TRIMETHOPRIM-SULFA: You have been given a prescription for trimethoprim-sulfa (TMS, Septra, Bactrim). This is a combination antibiotic of the sulfa class, often used for urinary tract infections, middle ear infections, bronchitis, shigella intestinal infection, and Pneumocystis pneumonia. TMS is usually well-tolerated. Occasional side effects include nausea and decreased appetite. Septra is not recommended for infants less than two months of age. Do not take this medication if you have experienced severe side effects or allergy to sulfa medicine. You should stop this medicine at once and contact your physician if you develop any rash, joint pain, shortness of breath, bruising, or jaundice (yellow color in the skin), or if you develop any other new or unusual symptoms. Continue all medications prescribed by your [facility] provider. Follow-up with orthopedics first thing in the morning he stated to be at the office at 8 AM. FOLLOW-UP CARE: If you have been referred to a physician for follow-up care, call the physicians office for an appointment as you were instructed or within the next two days. If you experience worsening or a significant change in your symptoms, notify the physician immediately or return to the Emergency Department at any time for re-evaluation. Prescriptions: Sulfamethoxazole/Trimethoprim [Bactrim Ds Tablet] 1 each PO BID #20 tablet Forms: Smoking Cessation Education Referrals: KERRIE SMILEY MD [NO LOCAL MD] - Follow up as needed SHARMIN SKELTON MD [ACTIVE STAFF] - Follow up tomorrow (Be at the office at 8 AM in the morning)
[2019-07-23 17:12] LABS: ALBUMIN 4.7 g/dL (3.5-5.0); ALKALINE PHOSPHATASE 146 U/L (38-126); ANION GAP 9 (5-19); ASPARTATE AMINO TRANSFERASE 38 U/L (17-59); BILIRUBIN,DIRECT 0.3 mg/dL (0.0-0.4); BILIRUBIN,TOTAL 0.5 mg/dL (0.2-1.3); BLOOD UREA NITROGEN 11 mg/dL (7-20); CALCIUM 10.1 mg/dL (8.4-10.2); CARBON DIOXIDE 33 mmol/L (22-30); CHLORIDE 95 mmol/L (98-107); GLUCOSE 127 mg/dL (75-110)
[2019-07-23] MEDS ORDERED: PREDNISONE 20 MG TABLET PO ONE (17:17)
--- NOTE | 2019-07-23 17:18 | RADIOLOGY REPORT (SQ) ---
EXAM DESCRIPTION: WRIST RIGHT 3 VIEWS COMPLETED DATE/TIME: 07/23/2019 5:09 pm REASON FOR STUDY: wrist swelling/redness COMPARISON: 06/08/2019 NUMBER OF VIEWS: Three views. TECHNIQUE: AP, lateral, and oblique radiographic images acquired of the right wrist. LIMITATIONS: None. FINDINGS: MINERALIZATION: Osteopenia. BONES: There is no acute fracture dislocation. There arm lucencies within the scaphoid and lunate. Most marked at this case with only junction. There is lucency in the mid lateral aspect of the dista l radius. SOFT TISSUES: There is soft tissue swelling. OTHER: Advanced degenerative changes with narrowing of the radiocarpal joint space this is progressed significantly since May. IMPRESSION: Rapidly progressive arthritic changes in the right wrist. This may represent septic art hritis or osteomyelitis. TECHNICAL DOCUMENTATION: JOB ID: [id number] [employer]- All Rights Reserved Reading location - IP/workstation name: [email or web address]
[2019-07-23] MEDS ORDERED: LIDOCAINE 1% INJ-PF (10 MG/ML) 30 ML SDV INJ ONE (17:35)
--- NOTE | 2019-07-23 18:39 | ER Document Report ---
Doctor's Note Notes: 07/23/19 18:38 Patient was seen by midlevel provider and discussed with me. Patient is referred in from urgent care center for evaluation of redness on his his right wrist for 1 day he denies any trauma or falls. He has had no fevers. He has minimal discomfort says is less painful than his previous gout Physical exam he has a small area of redness over the dorsal aspect of the wrist just around the the snuffbox tenderness in the area and some minimal discomfort with flexion extension of the wrist wrist and hand is nontender x-rays were reviewed he does appear to have moderate amount of arthritis however radiologist indicates they cannot rule out osteomyelitis. Based that we will go ahead and obtain MRI to rule out osteo-or tissue infection
--- NOTE | 2019-07-23 19:56 | RADIOLOGY REPORT (SQ) ---
EXAM DESCRIPTION: MRI RT UPPER EXTREMITY COMBO COMPLETED DATE/TIME: 07/23/2019 7:43 pm REASON FOR STUDY: eval for osteomyelitis/septic joint COMPARISON: Plain radiographs TECHNIQUE: Multiplanar imaging of the right wrist to include T1-weighted, postcontrast T1-weighted, and T2-weighted images. CONTRAST TYPE AND DOSE: 15 mL Dotarem. RENAL FUNCTION: Not indicated. ACR Type II contrast agent associated with few, if any, unconfounded cases of NSF LIMITATIONS: None. FINDINGS: BONE MARROW: There is generalized loss of signal on T1 weighted images with increased sign al on T2 weighted images and contrast enhancement involving the proximal scaphoid and distal radius. Loss of cortex of the scaphoid. Scattered degenerative changes otherwise noted. SOFT TISSUES: Generalized soft tissue swelling. Small amount of fluid in the joint. OTHER: No other significant finding. IMPRESSION: Findings of the proximal scaphoid and distal radius its worrisome for osteomyelitis. Ge neralize enhancement and soft tissue edema. Also concern for septic arthritis. TECHNICAL DOCUMENTATION: JOB ID: [id number] [employer]- All Rights Reserved Reading location - IP/workstation name: [email or web address]
[2019-07-23 20:10] VITALS: BP 109/60
[2019-07-23] MEDS ORDERED: SULFAMETHOXAZOLE/TRIMETHOPRIM 800-160 MG TABLET PO ONE (20:18)
== END 2019-07-23 20:41 | disposition home or self-care (01) ==
LOC: ER 14:37
DX: M86.8X4 Other osteomyelitis, hand (principal); M79.89 Other specified soft tissue disorders; M25.531 Pain in right wrist; R21 Rash and other nonspecific skin eruption; Z79.899 Other long term (current) drug therapy; F17.200 Nicotine dependence, unspecified, uncomplicated; I10 Essential (primary) hypertension
CPT/HCPCS: 99284; 36415; 85025; 85652; 80053; 86141; 73220; 73110; A9576; J3490; J7512

== ENCOUNTER → 2020-05-20 | Outpatient (CLI) | payer MEDICARE ==
--- NOTE | 2020-05-20 12:44 | RADIOLOGY REPORT (SQ) ---
EXAM DESCRIPTION: L SPINE W/FLEX/EXT IMAGES COMPLETED DATE/TIME: 05/20/2020 11:30 am REASON FOR STUDY: LUMBAR RADICULOPATHY COMPARISON: None. NUMBER OF VIEWS: Four views TECHNIQUE: An AP view of the lumbar spine was obtained. Lateral views were obtained in neutral, fle xion, and extension. LIMITATIONS: None. FINDINGS: MINERALIZATION: Normal. SEGMENTATION: Normal. No transitional anatomy. ALIGNMENT: Grade 1 anterolisthesis of L4 on L5. FLEXION/EXTENSION: No instability. VERTEBRAE: Kyphoplasty changes are present at L5. DISCS: The L4-5 disc space is narrowed. POSTERIOR ELEMENTS: Hypertrophic facet changes from L4-S1. HARDWARE: None in the spine. OTHER: No other significant finding. IMPRESSION: Anterolisthesis of L4 on L5. Degenerative disc disease. Facet arthropathy. No instability on flexion/ extension. TECHNICAL DOCUMENTATION: JOB ID: [id number] [employer]- All Rights Reserved Reading location - IP/workstation name: [email or web address]
== END ==
LOC: RAD 10:57
PROVIDERS: ATTEND Specialist
DX: M51.16 Intervertebral disc disorders with radiculopathy, lumbar region (principal); M43.16 Spondylolisthesis, lumbar region; M47.896 Other spondylosis, lumbar region
CPT/HCPCS: 72114